=== PATIENT | female | born 1995 | race Caucasian/White ===

== ENCOUNTER 2017-06-19 03:08 | Emergency (ER) | payer SELFPAY ==
[2017-06-19 03:17] VITALS: BP 142/84; PULSE 98; RESP 16; TEMP 98
[2017-06-19] MEDS ORDERED: ONDANSETRON ODT 4 MG TAB PO STA (03:23)
--- NOTE | 2017-06-19 03:25 | ED ---
General Adult HPI - General Chief complaint: Abdominal Pain Stated complaint: VOMITING Time Seen by Provider: 06/19/17 03:18 Source: patient, RN notes reviewed Mode of arrival: ambulatory Limitations: no limitations - History of Present Illness Initial comments: Patient 22-year-old female presenting to the emergency room today with a chief complaint of nausea vomiting. She states she woke up a few hours ago had an episode of vomiting. Feeling better at this time. Does admit that she's had some cramping lower abdomen. States had these symptoms off-and-on over the last week. Patient does admit that she had a test at home that was negative. Patient denies any other complaints symptoms currently. Patient denies any recent fever, chills, shortness of breath, chest pain, back pain, numbness or tingling, dysuria or hematuria, constipation or diarrhea, headaches or visual changes, or any other complaints. - Related Data Previous Rx's Medication Instructions Recorded Ondansetron Odt [Zofran Odt] 4 mg PO Q8HR PRN #10 tab 03/19/16 Sulfamethox-Tmp 800-160Mg [Bactrim 1 each PO Q12HR #20 tab 03/19/16 DS 800-160 mg] Ondansetron [Zofran] 4 mg PO Q8HR PRN #15 tab 06/19/17 Allergies Allergy/AdvReac Type Severity Reaction Status Date / Time No Known Allergies Allergy Verified 03/18/16 22:50 Review of Systems ROS Statement: Those systems with pertinent positive or pertinent negative responses have been documented in the HPI. ROS Other: All systems not noted in ROS Statement are negative. Past Medical History Past Medical History: No Reported History Additional Past Medical History / Comment(s): Blood type: O+ History of Any Multi-Drug Resistant Organisms: None Reported Past Surgical History: No Surgical Hx Reported Additional Past Surgical History / Comment(s): D&C 2016 Past Psychological History: No Psychological Hx Reported Smoking Status: Never smoker Past Alcohol Use History: Occasional Past Drug Use History: Marijuana General Exam - General Exam Comments Initial Comments: General: The patient is awake and alert, in no distress, and does not appear acutely ill. Eye: Pupils are equal, round and reactive to light, extra-ocular movements are intact. No nystagmus. There is normal conjunctiva bilaterally. No signs of icterus. Ears, nose, mouth and throat: There are moist mucous membranes and no oral lesions. Neck: The neck is supple, there is no tenderness or JVD. Cardiovascular: There is a regular rate and rhythm. No murmur, rub or gallop is appreciated. Respiratory: Lungs are clear to auscultation, respirations are non-labored, breath sounds are equal. No wheezes, stridor, rales, or rhonchi. Gastrointestinal: Abdomen soft on palpation. Mild tenderness epigastric. No rebound tenderness. No Guarding. No CVA tenderness. Musculoskeletal: Normal ROM, no tenderness. Strength 5/5. Sensation intact. Pulses equal bilaterally 2+. Neurological: A&O x 3. CN II-XII intact, There are no obvious motor or sensory deficits. Coordination appears grossly intact. Speech is normal. Skin: Skin is warm and dry and no rashes or lesions are noted. Psychiatric: Cooperative, appropriate mood & affect, normal judgment. Limitations: no limitations Course Vital Signs 06/19/17 03:13 Temperature 98.0 F Pulse Rate 98 Respiratory 16 Rate Blood Pressure 142/84 O2 Sat by Pulse 99 Oximetry Medical Decision Making - Medical Decision Making Patient's urinalysis reviewed. Patient doing well at this time no abdominal pain abdomen soft on palpation. Signs symptoms for return were discussed with the patient. Start she'll be treated with nausea medication advised follow-up. - Lab Data Lab Results 06/19/17 06/19/17 Range/Units 03:27 03:27 Urine Color Yellow Urine Appearance Clear (Clear) Urine pH 6.0 (5.0-8.0) Ur Specific [place] 1.016 (1.001-1.035) Urine Protein Trace H (Negative) Urine Glucose (UA) Negative (Negative) Urine Ketones Negative (Negative) Urine Blood Moderate H (Negative) Urine Nitrite Negative (Negative) Urine Bilirubin Negative (Negative) Urine Urobilinogen <2.0 (<2.0) mg/dL Ur Leukocyte Esterase Negative (Negative) Urine RBC 1 (0-5) /hpf Urine WBC 2 (0-5) /hpf Ur Squamous Epith Cells 3 (0-4) /hpf Urine Mucus Few H (None) /hpf Urine HCG, Qual Not Detected (Not Detectd) Disposition Clinical Impression: Nausea & vomiting Disposition: HOME SELF-CARE Condition: Good Instructions: Acute Nausea and Vomiting (ED) Additional Instructions: Please use medication as discussed. Please follow-up with family doctor in the next 2 days of symptoms have not improved. Please return to emergency room if the symptoms increase or worsen or for any other concerns. Prescriptions: Ondansetron [Zofran] 4 mg PO Q8HR PRN #15 tab PRN Reason: Nausea Referrals: None,Stated [Primary Care Provider] - 1-2 days Bambi Dietrich MD [STAFF PHYSICIAN] - 1-2 days Time of Disposition: 03:55
[2017-06-19 03:49] LABS: Appearance,Urine Clear (Clear); Bilirubin,Urine Negative (Negative); Blood,Urine Moderate (Negative); Color,Urine Yellow; Glucose,Urine (UA) Negative (Negative); Ketones,Urine Negative (Negative); Leukocyte Esterase,Urine Negative (Negative); Mucus,Urine Few /hpf; Nitrite,Urine Negative (Negative); Protein,Urine Trace (Negative); RBC,Urine 1 /hpf (0-5); Specific Gravity,Urine 1.016 (1.001-1.035); Squamous Epithelial Cell,Urine 3 /hpf (0-4); Urobilinogen,Urine <2.0 mg/dL (<2.0); WBC,Urine 2 /hpf (0-5)
== END 2017-06-19 04:01 | disposition home or self-care (01) ==
LOC: EC 03:08
DX: R11.2 Nausea with vomiting, unspecified (principal); R10.13 Epigastric pain
CPT/HCPCS: 81001; 81025; 99284

== ENCOUNTER 2018-01-16 13:47 | Emergency (ER) | payer OTHER ==
[2018-01-16 13:53] VITALS: TEMP 97.5
[2018-01-16] MEDS ORDERED: ONDANSETRON 4 MG/2 ML VIAL IVP STA (14:03)
[2018-01-16] MEDS ORDERED: KETOROLAC 30 MG/ML 1 ML VIAL IVP STA (14:03)
[2018-01-16] MEDS ORDERED: SODIUM CHLORIDE 0.9% 1,000 ML IV STA ×2 (14:03)
[2018-01-16] MEDS ORDERED: SODIUM CHLORIDE 0.9% 1,000 ML IV ONE (14:07)
--- NOTE | 2018-01-16 14:07 | ED ---
Nausea/Vomiting/Diarrhea HPI - General Chief complaint: Nausea/Vomiting/Diarrhea Stated complaint: Vomiting Time Seen by Provider: 01/16/18 13:57 Source: patient, RN notes reviewed, old records reviewed Mode of arrival: wheelchair Limitations: no limitations - History of Present Illness Initial comments: This Patient is a 22-year-old female presents emergency department today with chief complaint nausea and vomiting onset this morning. Patient reports she's had lower abdominal pain. She is feeling well yesterday. Said multiple episodes of vomiting over the past few hours. Patient arrives emergency department diaphoretic and pale. Patient states she's had no diarrhea. She states that she may possibly be she's 2 days late from her menstrual cycle. Patient states that she has had no recent fevers or chills. She denies any cough or congestion. - Related Data Previous Rx's Medication Instructions Recorded Ondansetron Odt [Zofran Odt] 4 mg PO Q8HR PRN #10 tab 03/19/16 Sulfamethox-Tmp 800-160Mg [Bactrim 1 each PO Q12HR #20 tab 03/19/16 DS 800-160 mg] Ondansetron [Zofran] 4 mg PO Q8HR PRN #15 tab 06/19/17 Famotidine [Pepcid] 20 mg PO BID #20 tablet 01/16/18 Ondansetron Odt [Zofran Odt] 4 mg PO Q8HR PRN #12 tab 01/16/18 Allergies Allergy/AdvReac Type Severity Reaction Status Date / Time No Known Allergies Allergy Verified 01/16/18 13:53 Review of Systems ROS Statement: Those systems with pertinent positive or pertinent negative responses have been documented in the HPI. ROS Other: All systems not noted in ROS Statement are negative. Past Medical History Past Medical History: No Reported History Additional Past Medical History / Comment(s): Blood type: O+ History of Any Multi-Drug Resistant Organisms: None Reported Past Surgical History: No Surgical Hx Reported Additional Past Surgical History / Comment(s): D&C 2016 Past Psychological History: No Psychological Hx Reported Smoking Status: Never smoker Past Alcohol Use History: Occasional Past Drug Use History: Marijuana General Exam - General Exam Comments Initial Comments: 22-year-old female. Alert and oriented. appears ill, actively vomiting. Pale and diaphoretic. Limitations: no limitations General appearance: alert, in no apparent distress Head exam: Present: atraumatic, normocephalic, normal inspection Eye exam: Present: normal appearance, PERRL, EOMI. Absent: scleral icterus, conjunctival injection, periorbital swelling ENT exam: Present: normal exam, normal oropharynx, mucous membranes moist Neck exam: Present: normal inspection. Absent: tenderness, meningismus, lymphadenopathy Respiratory exam: Present: normal lung sounds bilaterally. Absent: respiratory distress, wheezes, rales, rhonchi, stridor Cardiovascular Exam: Present: regular rate, normal rhythm, normal heart sounds. Absent: systolic murmur, diastolic murmur, rubs, gallop, clicks GI/Abdominal exam: Present: soft, tenderness (Diffuse, epigastric tenderness.), normal bowel sounds. Absent: distended, guarding, rebound, rigid Extremities exam: Present: normal inspection, full ROM, normal capillary refill. Absent: tenderness, pedal edema, joint swelling, calf tenderness Back exam: Present: normal inspection Neurological exam: Present: alert, oriented X3, CN II-XII intact Psychiatric exam: Present: normal affect, normal mood Course Vital Signs 01/16/18 01/16/18 13:51 16:16 Temperature 97.5 F L Pulse Rate 76 90 Respiratory 20 18 Rate Blood Pressure 136/83 124/76 O2 Sat by Pulse 100 99 Oximetry Medical Decision Making - Medical Decision Making 22-year-old female present meds today with 1 day of nausea and vomiting. Patient denies emergency department appearing quite ill diaphoretic and significant vomiting. At this time patient's lab work was reviewed, she did have mild lactic acidosis is 2.1. Patient was given 2 L fluid bolus. Kidney function shows mild dehydration. White blood cell count was normal. On reexam she continued to be nauseated and complaint of abdominal pain. I did complete a CT abdomen and pelvis which at this time was negative for any acute process. Her urinalysis and hCG were both negative. I discussed at this time the Patient will follow-up with primary care provider and we'll put the Patient on Anacin medication for gastritis as well as nausea medication. Patient agrees treatment plan will comply. Return purpose were discussed. - Lab Data Result diagrams: 01/16/18 14:17 01/16/18 14:17 Lab Results 01/16/18 01/16/18 01/16/18 Range/Units 14:17 14:17 14:17 WBC 8.6 (4.0-11.0) k/uL RBC 4.78 (3.80-5.40) m/uL Hgb 12.7 (11.4-16.0) gm/dL Hct 40.1 (34.0-46.0) % MCV 83.9 (80.0-100.0) fL MCH 26.6 (25.0-35.0) pg MCHC 31.7 (31.0-37.0) g/dL RDW 14.1 (11.5-15.5) % Plt Count 211 (150-450) k/uL Neutrophils % 73 % Lymphocytes % 20 % Monocytes % 5 % Eosinophils % 2 % Basophils % 0 % Neutrophils # 6.2 (1.3-7.7) k/uL Lymphocytes # 1.7 (1.0-4.8) k/uL Monocytes # 0.4 (0-1.0) k/uL Eosinophils # 0.1 (0-0.7) k/uL Basophils # 0.0 (0-0.2) k/uL Sodium 139 (137-145) mmol/L Potassium 4.3 (3.5-5.1) mmol/L Chloride 108 H (98-107) mmol/L Carbon Dioxide 19 L (22-30) mmol/L Anion Gap 12 mmol/L BUN 28 H (7-17) mg/dL Creatinine 0.50 L (0.52-1.04) mg/dL Est GFR (CKD-EPI)AfAm >90 (>60 ml/min/1.73 sqM) Est GFR (CKD-EPI)NonAf >90 (>60 ml/min/1.73 sqM) Glucose 116 H (74-99) mg/dL Lactic Ac Sepsis Rflx Plasma Lactic Acid [place] 2.1 H* (0.7-2.0) mmol/L Calcium 10.4 H (8.4-10.2) mg/dL Total Bilirubin 0.6 (0.2-1.3) mg/dL AST 27 (14-36) U/L ALT 22 (9-52) U/L Alkaline Phosphatase 71 (38-126) U/L Total Protein 8.4 H (6.3-8.2) g/dL Albumin 4.8 (3.5-5.0) g/dL Amylase 83 (30-110) U/L Lipase 153 (23-300) U/L Urine Color Urine Appearance (Clear) Urine pH (5.0-8.0) Ur Specific [place] (1.001-1.035) Urine Protein (Negative) Urine Glucose (UA) (Negative) Urine Ketones (Negative) Urine Blood (Negative) Urine Nitrite (Negative) Urine Bilirubin (Negative) Urine Urobilinogen (<2.0) mg/dL Ur Leukocyte Esterase (Negative) Urine HCG, Qual (Not Detectd) 01/16/18 01/16/18 01/16/18 Range/Units 14:54 15:35 15:35 WBC (4.0-11.0) k/uL RBC (3.80-5.40) m/uL Hgb (11.4-16.0) gm/dL Hct (34.0-46.0) % MCV (80.0-100.0) fL MCH (25.0-35.0) pg MCHC (31.0-37.0) g/dL RDW (11.5-15.5) % Plt Count (150-450) k/uL Neutrophils % % Lymphocytes % % Monocytes % % Eosinophils % % Basophils % % Neutrophils # (1.3-7.7) k/uL Lymphocytes # (1.0-4.8) k/uL Monocytes # (0-1.0) k/uL Eosinophils # (0-0.7) k/uL Basophils # (0-0.2) k/uL Sodium (137-145) mmol/L Potassium (3.5-5.1) mmol/L Chloride (98-107) mmol/L Carbon Dioxide (22-30) mmol/L Anion Gap mmol/L BUN (7-17) mg/dL Creatinine (0.52-1.04) mg/dL Est GFR (CKD-EPI)AfAm (>60 ml/min/1.73 sqM) Est GFR (CKD-EPI)NonAf (>60 ml/min/1.73 sqM) Glucose (74-99) mg/dL Lactic Ac Sepsis Rflx Y Plasma Lactic Acid [place] (0.7-2.0) mmol/L Calcium (8.4-10.2) mg/dL Total Bilirubin (0.2-1.3) mg/dL AST (14-36) U/L ALT (9-52) U/L Alkaline Phosphatase (38-126) U/L Total Protein (6.3-8.2) g/dL Albumin (3.5-5.0) g/dL Amylase (30-110) U/L Lipase (23-300) U/L Urine Color Yellow Urine Appearance Clear (Clear) Urine pH 6.5 (5.0-8.0) Ur Specific [place] 1.027 (1.001-1.035) Urine Protein Trace H (Negative) Urine Glucose (UA) Negative (Negative) Urine Ketones Trace H (Negative) Urine Blood Negative (Negative) Urine Nitrite Negative (Negative) Urine Bilirubin Negative (Negative) Urine Urobilinogen 2.0 (<2.0) mg/dL Ur Leukocyte Esterase Negative (Negative) Urine HCG, Qual Not Detected (Not Detectd) - Radiology Data Radiology results: report reviewed Normal CT of abdomen and pelvis. Negative for any acute process. Disposition Clinical Impression: Nausea & vomiting, Gastroenteritis Disposition: HOME SELF-CARE Condition: Good Instructions: Acute Nausea and Vomiting (ED) Additional Instructions: Advised to rest, stay home, drink plenty of fluids. Return to emergency department if any alarming signs or symptoms occur. Prescriptions: Famotidine [Pepcid] 20 mg PO BID #20 tablet Ondansetron Odt [Zofran Odt] 4 mg PO Q8HR PRN #12 tab PRN Reason: Nausea Is patient prescribed a controlled substance at d/c from ED?: No Referrals: None,Stated [Primary Care Provider] - 1-2 days Bambi Dietrich MD [STAFF PHYSICIAN] - 1-2 days Time of Disposition: 17:03
[2018-01-16 14:41] LABS: Basophils % (A) 0 %; Eosinophils # (A) 0.1 k/uL (0-0.7); Eosinophils % (A) 2 %; HCT 40.1 % (34.0-46.0); HGB 12.7 gm/dL (11.4-16.0); Lymphocytes # (A) 1.7 k/uL (1.0-4.8); Lymphocytes % (A) 20 %; MCH 26.6 pg (25.0-35.0); MCHC 31.7 g/dL (31.0-37.0); MCV 83.9 fL (80.0-100.0); Mean Platelet Volume 7.6; Monocytes # (A) 0.4 k/uL (0-1.0); Monocytes % (A) 5 %; Neutrophils # (A) 6.2 k/uL (1.3-7.7); Neutrophils % (A) 73 %; Platelet Count 211 k/uL (150-450); RBC 4.78 m/uL (3.80-5.40); RDW 14.1 % (11.5-15.5); WBC 8.6 k/uL (4.0-11.0)
[2018-01-16 14:50] LABS: ALT 22 U/L (9-52); AST 27 U/L (14-36); Albumin 4.8 g/dL (3.5-5.0); Alkaline Phosphatase 71 U/L (38-126); Amylase 83 U/L (30-110); Anion Gap 12 mmol/L; Blood Urea Nitrogen 28 mg/dL (7-17); Calcium 10.4 mg/dL (8.4-10.2); Carbon Dioxide 19 mmol/L (22-30); Chloride 108 mmol/L (98-107); Glucose 116 mg/dL (74-99); Lipase 153 U/L (23-300); Potassium 4.3 mmol/L (3.5-5.1); Sodium 139 mmol/L (137-145); Total Bilirubin 0.6 mg/dL (0.2-1.3); Total Protein 8.4 g/dL (6.3-8.2)
[2018-01-16 15:47] LABS: Appearance,Urine Clear (Clear); Bilirubin,Urine Negative (Negative); Blood,Urine Negative (Negative); Color,Urine Yellow; Glucose,Urine (UA) Negative (Negative); Ketones,Urine Trace (Negative); Leukocyte Esterase,Urine Negative (Negative); Nitrite,Urine Negative (Negative); PH, Urine 6.5 (5.0-8.0); Protein,Urine Trace (Negative); Specific Gravity,Urine 1.027 (1.001-1.035)
[2018-01-16] MEDS ORDERED: METOCLOPRAMIDE 5 MG/ML 2 ML VIAL IVP STA (16:02)
[2018-01-16] MEDS ORDERED: diphenhydrAMINE 50 MG/ML 1 ML VIAL IVP STA (16:02)
[2018-01-16 16:16] VITALS: BP 124/76; PULSE 90; RESP 18
--- NOTE | 2018-01-16 16:41 | CT ---
EXAMINATION TYPE: CT abdomen pelvis w con DATE OF EXAM: 01/16/2018 COMPARISON: 03/19/2016 HISTORY: Nausea, vomiting and lower abdominal pain. CT DLP: 722.3 mGycm Automated exposure control for dose reduction was used. TECHNIQUE: Helical acquisition of images was performed from the lung bases through the pelvis. CONTRAST: Performed without Oral Contrast and with IV Contrast, patient injected with 100ml mL of Isovue M300. FINDINGS: Lung bases are clear. There is no pleural effusion. Heart size is normal. Liver spleen pancreas appea r normal. Bile ducts are not dilated. Gallbladder appears normal. There is no adrenal mass. Kidneys show satisfactory contrast opacification. There is no hydronephrosi s. There is 5 mm cyst posterior right lobe of the liver. There is no retroperitoneal adenopathy. There is no inguinal hernia. Bladder distends smoothly. Uteru s is anteverted. There is no free fluid in the pelvis. There is no intestinal wall thickening. There are no dilated loops. Lumbar vertebra have normal spacing and alignment. The bony pelvis appears inta ct. There is no mesenteric edema or adenopathy. Appendix is not seen. There is no sign of appendiciti s. IMPRESSION: NEGATIVE CT SCAN ABDOMEN AND PELVIS. NO CHANGE COMPARED TO OLD EXAM.
== END 2018-01-16 17:15 | disposition home or self-care (01) ==
LOC: EC 13:47
DX: K52.9 Noninfective gastroenteritis and colitis, unspecified (principal); E87.2 Acidosis; E86.0 Dehydration
CPT/HCPCS: 36415; 80053; 82150; 83605; 83690; 85025; 81003; 81025; 87040; 74177; 99284; 96374; 96375 ×3; 96361 ×2; J1200; J2765; J2405; J1885; Q9967; 87077; 87186

== ENCOUNTER 2019-01-23 01:12 | Emergency (ER) | payer OTHER ==
[2019-01-23] MEDS ORDERED: IBUPROFEN 400 MG TAB PO STA (01:48)
[2019-01-23] MEDS ORDERED: SULFAMETHOX-TMP 800-160MG 1 EACH TAB PO STA (01:49)
[2019-01-23] MEDS ORDERED: CEPHALEXIN 500 MG CAP PO STA (01:49)
[2019-01-23] MEDS ORDERED: ACET/COD 300 MG/30 MG STARTER PACK 6 TAB BTL PO STA (01:49)
--- NOTE | 2019-01-23 01:53 | ED ---
Skin/Abscess/FB HPI - General Chief complaint: Skin/Abscess/Foreign Body Stated complaint: Lump under breast Time Seen by Provider: 01/23/19 01:22 EST Source: patient Mode of arrival: ambulatory Limitations: no limitations - History of Present Illness Initial comments: This patient is a 23-year-old woman who presents to have evaluation of a lump that is developing in the inferior aspect of the right breast. Patient states that she initially noted this 4 days ago. Since that time she states it is becoming little bit larger and is now mildly painful. The area is also tender. She has not noted fever or chills. She has not noted warmth of the area. She states it may be looking a little bit red to her. There has been no nipple drainage. She has not noticed any axillary swelling. No other systemic symptoms. MD complaint: lesion Onset/Timin -: days(s) Tetanus Up to Date: yes Location: chest Severity: moderate Quality: aching Consistency: constant Improves with: none Worsens with: palpation Context: none Associated symptoms: denies other symptoms - Related Data Home Medications Medication Instructions Recorded Confirmed No Known Home Medications 01/23/19 01/23/19 Allergies Allergy/AdvReac Type Severity Reaction Status Date / Time No Known Allergies Allergy Verified 01/23/19 01:26 EST Review of Systems ROS Statement: Those systems with pertinent positive or pertinent negative responses have been documented in the HPI. ROS Other: All systems not noted in ROS Statement are negative. Constitutional: Denies: fever, chills Respiratory: Denies: cough, dyspnea Cardiovascular: Denies: chest pain, palpitations Gastrointestinal: Denies: abdominal pain, nausea, vomiting Skin: Denies: rash Past Medical History Past Medical History: No Reported History Additional Past Medical History / Comment(s): Blood type: O+ History of Any Multi-Drug Resistant Organisms: None Reported Past Surgical History: No Surgical Hx Reported Additional Past Surgical History / Comment(s): D&C 2016 Past Psychological History: No Psychological Hx Reported Smoking Status: Never smoker Past Alcohol Use History: None Reported Past Drug Use History: None Reported, Marijuana General Exam Limitations: no limitations General appearance: alert, in no apparent distress Respiratory exam: Present: normal lung sounds bilaterally. Absent: respiratory distress, wheezes, rales, rhonchi, stridor Cardiovascular Exam: Present: regular rate (Heart rate at my exam is 92), normal rhythm, normal heart sounds. Absent: systolic murmur, diastolic murmur, rubs, gallop Course Vital Signs 01/23/19 01:24 EST Temperature 98.6 F Pulse Rate 16 L Respiratory 123 H Rate Blood Pressure 123/82 O2 Sat by Pulse 100 Oximetry Medical Decision Making - Medical Decision Making Breast examination, with RN Crow present as tissue coordinator, reveals that there is an approximately 2 x 3 area of induration, with some overlying erythema, no real warmth. There is mild tenderness. No definite fluctuance. This is located at the 6 o'clock position. Discussed with the patient starting her on antibiotics, warm compresses, and other local care. Discussed appropriate follow-up and further care. Disposition Clinical Impression: Mastitis Disposition: HOME SELF-CARE Condition: Good Instructions (If sedation given, give patient instructions): Mastitis (ED) Is patient prescribed a controlled substance at d/c from ED?: No Referrals: None,Stated [Primary Care Provider] - 1-2 days Ella Charles MD [REFERRING] - 1-2 days Sofie Gonzales MD [STAFF PHYSICIAN] - 1-2 days
[2019-01-23 02:25] VITALS: BP 127/68; PULSE 68; RESP 16; TEMP 97.6
== END 2019-01-23 02:24 | disposition home or self-care (01) ==
LOC: EC 01:12
DX: N61.0 Mastitis without abscess (principal)
CPT/HCPCS: 99283

== ENCOUNTER 2019-08-24 16:26 | Outpatient (CLI) | payer OTHER ==
[2019-08-24 17:34] VITALS: BP 140/84; PULSE 103; RESP 18; TEMP 98.6
--- NOTE | 2019-09-01 07:38 | P.MSEPDOC ---
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 No visible bleeding in triage today - with spec or vaginal exam. Vital Signs - Temperature Temperature: 98.6 F Temperature Source: Oral - Pulse Right Sitting Brachial Pulse Rate: 103 Pulse Assessment Method: Automatic Cuff - Respirations Respiratory Rate: 18 Oxygen Delivery Method: Room Air O2 Sat by Pulse Oximetry: 98 - Blood Pressure Right Arm Sitting Blood Pressure: 140/84 Blood Pressure Mean: 102 Blood Pressure Source: Automatic Cuff Medical Screen Scoring (Pre) - Cervical Exam Dilation: 1-3 cm = 1 - Uterine Contractions Frequency: > 5 minutes apart = 1 Duration: > 40 seconds = 2 Intensity: N/A - Maternal Vital Signs Maternal Temperature: N/A Maternal Blood Pressure: N/A Signs of Preeclampsia: N/A Maternal Respirations: N/A - Maternal Trauma Maternal Trauma: N/A - Assessment - Baby A Baseline FHR: 135 Heart Rate - NICHD Category: Category I (Normal) = 0 NST: Reactive Position: N/A Station: N/A - Total Score - Baby A Total Score - Baby A: 4 - Total Score - Baby B Total Score - Baby B: 4 - Total Score - Baby C Total Score - Baby C: 4 - Level of Risk - Baby A Level of Risk - Baby A: Low (0-5) - Level of Risk - Baby B Level of Risk - Baby B: Low (0-5) - Level of Risk - Baby C Level of Risk - Baby C: Low (0-5) - Pain Assessment Pain Location and Character: Abdomen Pain Scale Used: Numeric (1 - 10) Pain Intensity: 5 Pain Management Goal: 3 Pain Description: Tightness Pain Radiation Location: none Pain Frequency: Intermittent Pain Duration: 1 Pain Duration Units: Hours Pain Behavior: None Exhibited Effects of Pain: none Pain Aggravating Factors: Activity, ADL's Physician Notification (Pre) - Physician Notified Physician Notified Date: 08/24/19 Physician Notified Time: 17:20 New Order Received: Yes - Notification Comment Comment: DC home after reactive NST, oral hydration, off work tonight, call for AM appt. Disposition - Disposition OB Disposition: Physician follow up in office, Discharge to home Discharge Date: 08/24/19 Discharge Time: 17:33 I agree with the RN Medical Screening Exam: Yes Risk & Benefit of care provided described in d/c instruction: Yes Diagnosis: FALSE LABOR BEFORE 37 COMPLETED WEEKS OF GEST, THIRD TRI
== END 2019-08-24 17:36 | disposition home or self-care (01) ==
LOC: FBPOP 16:26
PROVIDERS: ATTEND Obstetrics & Gynecology
DX: O47.03 False labor before 37 completed weeks of gestation, third trimester (principal); Z3A.37 37 weeks gestation of pregnancy
CPT/HCPCS: 59025; G0463; 99215

== ENCOUNTER 2019-09-11 06:22 | Inpatient (IN) | payer OTHER ==
[2019-09-11] MEDS ORDERED: TERBUTALINE 1 MG/ML VIAL SQ PRN (06:46)
[2019-09-11] MEDS ORDERED: METHYLERGONOVINE 0.2 MG/ML 1 ML AMP IM PRN (06:46)
[2019-09-11] MEDS ORDERED: OXYTOCIN 10 UNIT/ML 1 ML VIAL IM PRN (06:46)
[2019-09-11] MEDS ORDERED: CARBOPROST TROMETHAMINE 250 MCG/ML 1 ML AMP IM PRN (06:46)
[2019-09-11] MEDS ORDERED: LIDOCAINE 0.5% (PF) 5 MG/ML (50 ML SDV) SQ PRN (06:46)
[2019-09-11 06:54] LABS: Basophils % (A) 0 %; Eosinophils % (A) 0 %; HCT 36.4 % (34.0-46.0); HGB 12.6 gm/dL (11.4-16.0); Lymphocytes # (A) 0.9 k/uL (1.0-4.8); Lymphocytes % (A) 9 %; MCH 30.1 pg (25.0-35.0); MCHC 34.7 g/dL (31.0-37.0); MCV 86.9 fL (80.0-100.0); Mean Platelet Volume 10.1; Monocytes # (A) 0.3 k/uL (0-1.0); Monocytes % (A) 3 %; Neutrophils # (A) 9.1 k/uL (1.3-7.7); Neutrophils % (A) 86 %; Platelet Count 174 k/uL (150-450); RBC 4.19 m/uL (3.80-5.40); RDW 12.5 % (11.5-15.5); WBC 10.6 k/uL (3.8-10.6)
[2019-09-11] MEDS ORDERED: ZOLPIDEM 5 MG TAB PO PRN (07:17)
[2019-09-11] MEDS ORDERED: HYDROCORTISONE 2.5% RECTAL CREAM 30 GM TUBE RECTAL PRN (07:17)
[2019-09-11] MEDS ORDERED: HYDROcodone/APAP 5-325MG 1 EACH TAB PO PRN (07:17)
[2019-09-11] MEDS ORDERED: BENZOCAINE/MENTHOL SPRAY 1 GM/SPRAY AEROSOL TOPICAL PRN (07:17)
[2019-09-11] MEDS ORDERED: ACETAMINOPHEN TAB 325 MG TAB PO PRN (07:17)
[2019-09-11] MEDS ORDERED: SIMETHICONE 80 MG CHEWABLE PO PRN (07:17)
[2019-09-11] MEDS ORDERED: HYDROcodone/APAP 7.5-325MG 1 EACH TAB PO PRN (07:17)
[2019-09-11] MEDS ORDERED: LANOLIN CREAM 5 GM TUBE TOPICAL PRN (07:17)
[2019-09-11] MEDS ORDERED: diphenhydrAMINE 25 MG CAP PO PRN (07:17)
[2019-09-11] MEDS ORDERED: WITCH HAZEL 1 EACH MED..PAD TOPICAL PRN (07:17)
[2019-09-11] MEDS ORDERED: diphenhydrAMINE 50 MG/ML 1 ML VIAL IVP PRN ×2 (07:17)
[2019-09-11] MEDS ORDERED: diphenhydrAMINE 50 MG CAP PO PRN (07:17)
--- NOTE | 2019-09-11 07:27 | P.HPOB ---
History of Present Illness H&P Date: 09/11/19 Chief Complaint: 37-6/7 weeks, active labor The patient is a 24-year-old 2 para 0010 admitted at 37-6/7 weeks as established by last menstrual period and confirmed by second trimester ultrasound per she is admitted in active labor at 9+ centimeters dilated with all signs reassuring. Her has been essentially uncomplicated though she the fetus did have a suspected VSD for which she was sent for echo which failed to demonstrate any abnormalities. She also is known to be rubella nonimmune. Group B strep status is negative. She did present with spontaneous rupture of membranes with reportedly clear fluid. Obstetrical history: 2 para 0010 with 1 previous early miscarriage not requiring D&C. Current statistics are listed in history of present illness. EDC of 09/26/2019 was established by last menstrual period and confirmed by second trimester ultrasound. Laboratory workup demonstrates a blood type of O+ with a negative antibody screen. Rubella status is nonimmune. Remainder of the laboratory workup was within normal limits. Early Glucola as well as second trimester Glucola were within normal limits and group B strep status is negative. Gynecologic history: Unremarkable with no history of any infections to include STDs. Review of Systems Review of systems is confined to history of present illness. Past Medical History Past Medical History: No Reported History Additional Past Medical History / Comment(s): Blood type: O+ History of Any Multi-Drug Resistant Organisms: None Reported Past Surgical History: No Surgical Hx Reported Additional Past Surgical History / Comment(s): D&C 2015 Smoking Status: Never smoker Medications and Allergies Home Medications Medication Instructions Recorded Confirmed Type Doxylamine Succinate [Unisom] 25 mg PO DIRECTED 08/24/19 09/11/19 History Ferrous Sulfate [Iron] 325 mg PO DAILY 08/24/19 09/11/19 History Pnv No.95/Ferrous Fum/Folic AC 1 each PO DAILY 08/24/19 09/11/19 History [ Multivitamin Tablet] Allergies Allergy/AdvReac Type Severity Reaction Status Date / Time No Known Allergies Allergy Verified 09/11/19 06:45 Exam Vital Signs Temp Pulse Resp BP Pulse Ox 09/11/19 07:19 97.8 F 70 18 143/85 09/11/19 07:06 97.4 F L 102 H 18 128/68 95 Intake and Output 09/10/19 09/11/19 09/11/19 22:59 06:59 14:59 Other: Weight 90.718 kg In general, this is a well-developed, well-nourished white female in moderate to significant discomfort as she is in active labor and completely dilated. Her heart has a regular rhythm and rate without murmur. Her lungs are clear to auscultation bilaterally. Her abdomen is nondistended, gravid, has normal active bowel sounds, soft, nontender, without any palpable masses aside from uterine fundus. Her extremities are without any cyanosis, clubbing, or significant edema and are nontender to palpation bilaterally. Digital cervical examination da Ruchi discharged to be completely dilated with the vertex in presentation at +2 station. Results Result Diagrams: 09/11/19 06:33 Abnormal Lab Results - Last 24 Hours (Table) 09/11/19 Range/Units 06:33 Neutrophils # 9.1 H (1.3-7.7) k/uL Lymphocytes # 0.9 L (1.0-4.8) k/uL Assessment and Plan (1) Active labor at term Current Visit: Yes Status: Acute Code(s): [id number] - SNOMED Code(s): 29923270 Plan: The patient has been admitted for active management of labor. She'll have close maternal and surveillance and expectant management will be practiced.
[2019-09-11] MEDS ORDERED: OXYTOCIN 20 UNITS/1000 ML NS 1,000 ML IV SCH (07:30)
--- NOTE | 2019-09-11 07:30 | P.PROBDLV ---
Vaginal Delivery Note - . Vaginal Delivery Note: The patient is a 24-year-old 2 para 0010 admitted at 37-6/7 weeks by good dating parameters breech she is admitted in active labor with spontaneous rupture of membranes and all signs reassuring. Her has been uncomplicated though she is rubella nonimmune and the fetus had a suspected ventriculoseptal defect which was not demonstrated with echo at [place]. On labor and delivery, I presented very quickly as the patient was 9+ centimeters upon presentation. She then pushed over the course of approximately 4-5 contractions to a normal spontaneous vaginal delivery of a viable 6 lbs. 10 oz. baby girl with Apgars of 7 at 1 minute and 8 at 5 minutes delivered in the right occiput anterior position. There was then noted to be moderate meconium- stained fluid behind the fetus. The nose and mouth were thoroughly suctioned on the perineum. Remainder of the infant was then delivered where the nose and mouth were again thoroughly suctioned. The infant was immediately vigorous. The placenta was delivered spontaneously, intact, and grossly normal with a grossly normal three-vessel cord inserted approximate 3-4 cm from the margin of the placental disc. There were no perineal lacerations of the she did have mild bilateral periurethral abrasions which were not stitched. All sponge, instrument, and needle counts were correct. Estimated blood loss for the case was approximately 250 mL. There were no complications. Both mother and are resting comfortably in recovery of the infant was taken the special care nursery for observation secondary to tachypnea and of a slightly low oxygen saturation.
[2019-09-11] MEDS: IBUPROFEN 600 MG TAB PO PRN ×2 (08:20→20:00)
[2019-09-11] MEDS ORDERED: MEASLES-MUMPS-RUBELLA VACC/PF 12,500 UNIT/0.5 ML VIAL SQ ONE (14:30)
[2019-09-11] MEDS: SENNOSIDES-DOCUSATE SODIUM 1 EACH TAB PO SCH ×2 (19:48→20:00)
[2019-09-11] MEDS: LACTATED RINGERS 1,000 ML IV SCH (20:16)
[2019-09-12 06:13] LABS: Basophils % (A) 0 %; Eosinophils % (A) 0 %; HCT 32.5 % (34.0-46.0); HGB 11.1 gm/dL (11.4-16.0); Lymphocytes # (A) 1.5 k/uL (1.0-4.8); Lymphocytes % (A) 20 %; MCH 29.8 pg (25.0-35.0); MCV 87.6 fL (80.0-100.0); Mean Platelet Volume 9.2; Monocytes # (A) 0.5 k/uL (0-1.0); Monocytes % (A) 6 %; Neutrophils # (A) 5.5 k/uL (1.3-7.7); Neutrophils % (A) 72 %; Platelet Count 171 k/uL (150-450); RBC 3.71 m/uL (3.80-5.40); RDW 12.5 % (11.5-15.5); WBC 7.7 k/uL (3.8-10.6)
[2019-09-12 08:24] VITALS: BP 141/80; PULSE 70; RESP 16; TEMP 98.7
[2019-09-12] MEDS: SENNOSIDES-DOCUSATE SODIUM 1 EACH TAB PO SCH (08:25)
--- NOTE | 2019-09-12 10:06 | P.DS ---
Providers Date of admission: 09/11/19 06:33 Expected date of discharge: 09/12/19 Attending physician: Patricia English Primary care physician: Stated None Hospital Course: This is a 24-year-old white female 2 para 0010 EDC 09/26/2019 37-6/7 weeks' gestation. Patient presented in active spontaneous labor from home. Spontaneous amniorrhexis revealed light meconium-stained fluid. was remarkable for rubella status nonimmune, blood type O positive, group B strep cultures negative. Please see dictated history and physical for details. Patient went onto very swiftly deliver a liveborn female with scores of 7 and 8 at one and 5 minutes respectively. There were no lacerations encountered. Estimated blood loss 250 mL's. Infant weight 3015 g or 6 lbs. 10 oz. Please see dictated delivery note for details. This morning the patient is doing well. She is voiding, ambulating, passing flatus without difficulty. Vital signs are stable and she is afebrile. Fundus is firm and in the midline, symmetric and 18 week size. Extremities are negative for edema. Chest is clear in all moon. is doing well. Patient is judged to be in very good condition for discharge home. She will follow-up in the office with me in 6 weeks. I have reminded her no intercourse, tampons or douching. She will use [id number] Advil or Aleve, or Motrin as needed for pain. She will call with any fevers shakes or chills, foul smelling or copious lochia, with the passage of large blood clots, with any pain not alleviated by [id number] products, or indeed with any concerns. Contraceptive options have briefly been reviewed, and we will discuss this further in the office. Patient Condition at Discharge: Good Plan - Discharge Summary Discharge Rx Participant: No New Discharge Prescriptions: No Action Pnv No.95/Ferrous Fum/Folic AC [ Multivitamin Tablet] 1 each PO DAILY Doxylamine Succinate [Unisom] 25 mg PO DIRECTED Ferrous Sulfate [Iron] 325 mg PO DAILY Discharge Medication List Doxylamine Succinate [Unisom] 25 mg PO DIRECTED 08/24/19 [History] Ferrous Sulfate [Iron] 325 mg PO DAILY 08/24/19 [History] Pnv No.95/Ferrous Fum/Folic AC [ Multivitamin Tablet] 1 each PO DAILY 08/24/19 [History] Follow up Appointment(s)/Referral(s): Patricia English MD [STAFF PHYSICIAN] - 6 Weeks
== END 2019-09-12 10:45 | disposition home or self-care (01) | DRG 807 ==
LOC: FBPOP 06:22 → 4FBP 06:33
PROVIDERS: ADMIT Obstetrics & Gynecology; ATTEND Obstetrics & Gynecology
PROC: 10E0XZZ Delivery of Products of Conception, External Approach (ICD-10-PCS; principal; 2019-09-11)
DX: O77.0 Labor and delivery complicated by meconium in amniotic fluid (principal); Z37.0 Single live birth; Z3A.37 37 weeks gestation of pregnancy; Z79.899 Other long term (current) drug therapy
CPT/HCPCS: 85025; 86850; 86900; 86901; 90707

== ENCOUNTER 2021-12-23 14:09 | Emergency (ER) | payer OTHER ==
[2021-12-23 14:22] VITALS: TEMP 98.1
[2021-12-23] MEDS ORDERED: SODIUM CHLORIDE 0.9% 1,000 ML IV STA (14:37)
[2021-12-23] MEDS ORDERED: ONDANSETRON 4 MG/2 ML VIAL IVP STA (14:37)
[2021-12-23] MEDS ORDERED: PANTOPRAZOLE 40 MG/10 ML VIAL IVP STA (14:37)
--- NOTE | 2021-12-23 14:42 | ED ---
Abdominal Pain HPI - General Chief Complaint: Abdominal Pain Stated Complaint: Puking blood Time Seen by Provider: 12/23/21 14:29 Source: patient, RN notes reviewed, old records reviewed Mode of arrival: ambulatory Limitations: no limitations - History of Present Illness Initial Comments: 26-year-old female presents to the emergency room with vomiting blood today. Patient states that she is very anxious and just lost her brother. States she has been sick with cough and congestion for the past week however today she was vomiting and it was bright red in color which concerned her. She does have a history of iron deficiency anemia. She denies any alcohol, drug use or cigarette smoking. States that there is a possibility of . Denies any dysuria, vaginal discharge or vaginal bleeding. MD Complaint: abdominal pain -: days(s) (1) Location: LLQ Radiation: none Severity scale (1-10): 6 Consistency: constant Improves With: nothing Associated Symptoms: nausea, vomiting, hematemesis, other (cough, congestion) - Related Data Home Medications Medication Instructions Recorded Confirmed No Known Home Medications 12/23/21 12/23/21 Allergies Allergy/AdvReac Type Severity Reaction Status Date / Time No Known Allergies Allergy Verified 12/23/21 16:19 Review of Systems ROS Statement: Those systems with pertinent positive or pertinent negative responses have been documented in the HPI. ROS Other: All systems not noted in ROS Statement are negative. Past Medical History Past Medical History: No Reported History Additional Past Medical History / Comment(s): Blood type: O+ History of Any Multi-Drug Resistant Organisms: None Reported Past Surgical History: No Surgical Hx Reported Additional Past Surgical History / Comment(s): D&C 2016 Past Anesthesia/Blood Transfusion Reactions: No Reported Reaction Past Psychological History: No Psychological Hx Reported Past Alcohol Use History: None Reported Past Drug Use History: None Reported, Marijuana - Past Family History Mother Family Medical History: No Reported History General Exam Limitations: no limitations General appearance: alert, in no apparent distress Head exam: Present: atraumatic Eye exam: Present: normal appearance. Absent: scleral icterus, conjunctival injection, periorbital swelling, periorbital tenderness ENT exam: Present: normal oropharynx, mucous membranes moist Neck exam: Present: normal inspection, full ROM. Absent: tenderness, meningismus, lymphadenopathy, thyromegaly Respiratory exam: Present: normal lung sounds bilaterally. Absent: respiratory distress, wheezes, rales, rhonchi, stridor, chest wall tenderness, accessory mus deanna use, decreased breath sounds Cardiovascular Exam: Present: regular rate GI/Abdominal exam: Present: soft, tenderness (Left lower quadrant). Absent: distended, guarding, rebound, rigid Extremities exam: Present: normal capillary refill. Absent: full ROM, tenderness, pedal edema Back exam: Present: normal inspection, full ROM. Absent: tenderness, CVA tenderness (R), CVA tenderness (L), rash noted Neurological exam: Present: alert, oriented X3 Psychiatric exam: Present: normal affect, normal mood Skin exam: Present: warm, dry, normal color, other (Scattered bruising bilateral lower extremities and left upper arm). Absent: cyanosis, diaphoretic, petechiae, pallor Course Vital Signs 12/23/21 12/23/21 14:17 17:13 Temperature 98.1 F Pulse Rate 99 82 Respiratory 20 18 Rate Blood Pressure 151/84 108/73 O2 Sat by Pulse 100 100 Oximetry Medical Decision Making - Medical Decision Making Patient presents with vomiting of blood today. Denies any abdominal pain on exam. She does have scattered bruising to bilateral lower extremities and arms and states she has iron deficiency anemia and bruises easily. She denies any other abnormal bleeding. Hemoglobin and hematocrit stable, platelet count within normal limits at 215. Electrolytes are unremarkable. Urinalysis shows no evidence of , no evidence of infection. Abdomen soft and nontender, no RLQ pain. Patient was given IV fluids, Protonix, Toradol and Zofran in the emergency room. She states that she is feeling much better. No vomiting in the emergency room. Vital signs are stable. She is afebrile. Patient's bleeding may have been related to persistent retching which has now resolved. She was directed to follow up with her primary care doctor and return to the ER with any new or concerning symptoms. She is agreeable to this plan of care. Case was discussed with Dr. Son - Lab Data Result diagrams: 12/23/21 14:57 12/23/21 14:57 Lab Results 12/23/21 12/23/21 12/23/21 Range/Units 14:57 14:57 14:57 WBC 6.2 (3.8-10.6) k/uL RBC 4.69 (3.80-5.40) m/uL Hgb 12.0 (11.4-16.0) gm/dL Hct 38.3 (34.0-46.0) % MCV 81.6 (80.0-100.0) fL MCH 25.7 (25.0-35.0) pg MCHC 31.5 (31.0-37.0) g/dL RDW 14.3 (11.5-15.5) % Plt Count 215 (150-450) k/uL MPV 7.9 Neutrophils % 72 % Lymphocytes % 21 % Monocytes % 5 % Eosinophils % 1 % Basophils % 0 % Neutrophils # 4.5 (1.3-7.7) k/uL Lymphocytes # 1.3 (1.0-4.8) k/uL Monocytes # 0.3 (0-1.0) k/uL Eosinophils # 0.0 (0-0.7) k/uL Basophils # 0.0 (0-0.2) k/uL Hypochromasia Slight PT 9.9 (9.0-12.0) sec INR 0.9 (<1.2) APTT 23.3 (22.0-30.0) sec Sodium 140 (137-145) mmol/L Potassium 3.6 (3.5-5.1) mmol/L Chloride 98 (98-107) mmol/L Carbon Dioxide 29 (22-30) mmol/L Anion Gap 13 mmol/L BUN 20 H (7-17) mg/dL Creatinine 0.57 (0.52-1.04) mg/dL Est GFR (CKD-EPI)AfAm >90 (>60 ml/min/1.73 sqM) Est GFR (CKD-EPI)NonAf >90 (>60 ml/min/1.73 sqM) Glucose 96 (74-99) mg/dL Calcium 9.6 (8.4-10.2) mg/dL Total Bilirubin 0.3 (0.2-1.3) mg/dL AST 28 (14-36) U/L ALT 19 (4-34) U/L Alkaline Phosphatase 90 (38-126) U/L Total Protein 7.6 (6.3-8.2) g/dL Albumin 4.7 (3.5-5.0) g/dL Amylase 93 (30-110) U/L Lipase 260 (23-300) U/L HCG, Quant <2.4 mIU/mL Urine Color Urine Appearance (Clear) Urine pH (5.0-8.0) Ur Specific [place] (1.001-1.035) Urine Protein (Negative) Urine Glucose (UA) (Negative) Urine Ketones (Negative) Urine Blood (Negative) Urine Nitrite (Negative) Urine Bilirubin (Negative) Urine Urobilinogen (<2.0) mg/dL Ur Leukocyte Esterase (Negative) Urine RBC (0-5) /hpf Urine WBC (0-5) /hpf Ur Squamous Epith Cells (0-4) /hpf Urine Mucus (None) /hpf Urine HCG, Qual (Not Detectd) 12/23/21 12/23/21 Range/Units 14:57 14:57 WBC (3.8-10.6) k/uL RBC (3.80-5.40) m/uL Hgb (11.4-16.0) gm/dL Hct (34.0-46.0) % MCV (80.0-100.0) fL MCH (25.0-35.0) pg MCHC (31.0-37.0) g/dL RDW (11.5-15.5) % Plt Count (150-450) k/uL MPV Neutrophils % % Lymphocytes % % Monocytes % % Eosinophils % % Basophils % % Neutrophils # (1.3-7.7) k/uL Lymphocytes # (1.0-4.8) k/uL Monocytes # (0-1.0) k/uL Eosinophils # (0-0.7) k/uL Basophils # (0-0.2) k/uL Hypochromasia PT (9.0-12.0) sec INR (<1.2) APTT (22.0-30.0) sec Sodium (137-145) mmol/L Potassium (3.5-5.1) mmol/L Chloride (98-107) mmol/L Carbon Dioxide (22-30) mmol/L Anion Gap mmol/L BUN (7-17) mg/dL Creatinine (0.52-1.04) mg/dL Est GFR (CKD-EPI)AfAm (>60 ml/min/1.73 sqM) Est GFR (CKD-EPI)NonAf (>60 ml/min/1.73 sqM) Glucose (74-99) mg/dL Calcium (8.4-10.2) mg/dL Total Bilirubin (0.2-1.3) mg/dL AST (14-36) U/L ALT (4-34) U/L Alkaline Phosphatase (38-126) U/L Total Protein (6.3-8.2) g/dL Albumin (3.5-5.0) g/dL Amylase (30-110) U/L Lipase (23-300) U/L HCG, Quant mIU/mL Urine Color Light Yellow Urine Appearance Clear (Clear) Urine pH 8.5 H (5.0-8.0) Ur Specific [place] 1.020 (1.001-1.035) Urine Protein Trace H (Negative) Urine Glucose (UA) Negative (Negative) Urine Ketones Negative (Negative) Urine Blood Negative (Negative) Urine Nitrite Negative (Negative) Urine Bilirubin Negative (Negative) Urine Urobilinogen <2.0 (<2.0) mg/dL Ur Leukocyte Esterase Small H (Negative) Urine RBC 1 (0-5) /hpf Urine WBC 4 (0-5) /hpf Ur Squamous Epith Cells 6 H (0-4) /hpf Urine Mucus Rare H (None) /hpf Urine HCG, Qual Not Detected (Not Detectd) Disposition Clinical Impression: Nausea & vomiting Disposition: HOME SELF-CARE Condition: Good Instructions (If sedation given, give patient instructions): Acute Nausea and Vomiting (ED) Additional Instructions: Increase your fluid intake. Eat a bland diet for the next 24 hours; bananas, rice, applesauce and toast. Avoid alcohol or spicy foods for the next 72 hours. Follow-up with your primary care doctor this week. Return to the emergency room with any new or concerning symptoms including persistent nausea vomiting, right lower quadrant pain, or fevers. Is patient prescribed a controlled substance at d/c from ED?: No Referrals: None,Stated [Primary Care Provider] - 1-2 days Time of Disposition: 16:59
[2021-12-23 15:13] LABS: Appearance,Urine Clear (Clear); Basophils % (A) 0 %; Bilirubin,Urine Negative (Negative); Blood,Urine Negative (Negative); Color,Urine Light Yellow; Eosinophils % (A) 1 %; Glucose,Urine (UA) Negative (Negative); HCT 38.3 % (34.0-46.0); Hypochromasia Slight; Ketones,Urine Negative (Negative); Leukocyte Esterase,Urine Small (Negative); Lymphocytes # (A) 1.3 k/uL (1.0-4.8); Lymphocytes % (A) 21 %; MCH 25.7 pg (25.0-35.0); MCHC 31.5 g/dL (31.0-37.0); MCV 81.6 fL (80.0-100.0); Mean Platelet Volume 7.9; Monocytes # (A) 0.3 k/uL (0-1.0); Monocytes % (A) 5 %; Mucus,Urine Rare /hpf; Neutrophils # (A) 4.5 k/uL (1.3-7.7); Neutrophils % (A) 72 %; Nitrite,Urine Negative (Negative); PH, Urine 8.5 (5.0-8.0); Platelet Count 215 k/uL (150-450); Protein,Urine Trace (Negative); RBC 4.69 m/uL (3.80-5.40); RBC,Urine 1 /hpf (0-5); RDW 14.3 % (11.5-15.5); Squamous Epithelial Cell,Urine 6 /hpf (0-4); Urobilinogen,Urine <2.0 mg/dL (<2.0); WBC 6.2 k/uL (3.8-10.6); WBC,Urine 4 /hpf (0-5)
[2021-12-23 15:20] LABS: ALT 19 U/L (4-34); AST 28 U/L (14-36); African American GFR (CKD) >90 (>60 ml/min/1.73 sqM); Albumin 4.7 g/dL (3.5-5.0); Alkaline Phosphatase 90 U/L (38-126); Amylase 93 U/L (30-110); Anion Gap 13 mmol/L; Blood Urea Nitrogen 20 mg/dL (7-17); Calcium 9.6 mg/dL (8.4-10.2); Carbon Dioxide 29 mmol/L (22-30); Chloride 98 mmol/L (98-107); Glucose 96 mg/dL (74-99); Lipase 260 U/L (23-300); Non-African American GFR(CKD) >90 (>60 ml/min/1.73 sqM); Potassium 3.6 mmol/L (3.5-5.1); Sodium 140 mmol/L (137-145); Total Bilirubin 0.3 mg/dL (0.2-1.3); Total Protein 7.6 g/dL (6.3-8.2)
[2021-12-23] MEDS ORDERED: KETOROLAC 15 MG/ML 1 ML VIAL IVP STA (15:31)
[2021-12-23 15:55] LABS: HCG,Quantitative Serum <2.4 mIU/mL
[2021-12-23 16:30] LABS: INR 0.9 (<1.2); Partial Thromboplastin Time 23.3 sec (22.0-30.0); Prothrombin Time 9.9 sec (9.0-12.0)
[2021-12-23] MEDS ORDERED: ONDANSETRON 4 MG ODT STARTER PACK 2 TAB BTL PO STA (16:57)
[2021-12-23 17:14] VITALS: BP 108/73; PULSE 82; RESP 18
== END 2021-12-23 17:15 | disposition home or self-care (01) ==
LOC: EC 14:09
DX: R11.2 Nausea with vomiting, unspecified (principal)
CPT/HCPCS: 99284 ×2; 96361 ×2; 96374 ×2; 96375 ×2; 36415; 80053; 82150; 83690; 85025; 85610; 85730; 81001; 81025; 84702; J2405; J1885; S0119; C9113

== ENCOUNTER 2023-04-02 20:56 | Emergency (ER) | payer OTHER ==
--- NOTE | 2023-04-02 21:10 | ED ---
General Adult HPI - General Stated complaint: Vomiting blood Time Seen by Provider: 04/02/23 21:10 - History of Present Illness Initial comments: 27-year-old female presented to the ED with chief complaint of nausea and vomiting. States since this morning onset of nausea and vomiting. States also has some abdominal cramping. Denies vaginal bleeding. Denies Fever or chills. No chest pain or shortness of breath. No other complaints. - Related Data Previous Rx's Medication Instructions Recorded Ondansetron Odt [Zofran Odt] 4 mg PO Q8HR PRN #10 tab 04/03/23 Allergies Allergy/AdvReac Type Severity Reaction Status Date / Time No Known Allergies Allergy Verified 04/02/23 21:11 Review of Systems ROS Statement: Those systems with pertinent positive or pertinent negative responses have been documented in the HPI. ROS Other: All systems not noted in ROS Statement are negative. Past Medical History Past Medical History: No Reported History Additional Past Medical History / Comment(s): Blood type: O+ History of Any Multi-Drug Resistant Organisms: None Reported Past Surgical History: No Surgical Hx Reported Additional Past Surgical History / Comment(s): D&C 2016 Past Anesthesia/Blood Transfusion Reactions: No Reported Reaction Past Psychological History: No Psychological Hx Reported Past Alcohol Use History: None Reported Past Drug Use History: None Reported, Marijuana - Past Family History Mother Family Medical History: No Reported History General Exam - General Exam Comments Initial Comments: Visual Physical Exam Vital signs reviewed General: Well-appearing, nontoxic, no acute distress. Head: Normocephalic, atraumatic Eyes: PERRLA, EOMI ENT: Airway patent Chest: Nonlabored breathing Skin: No visual rash, normal skin tone Neuro: Alert and oriented 3 Musculoskeletal: No gross abnormalities General appearance: alert, in no apparent distress Eye exam: Present: normal appearance Neck exam: Present: normal inspection Respiratory exam: Present: normal lung sounds bilaterally Cardiovascular Exam: Present: regular rate, normal rhythm GI/Abdominal exam: Present: soft (Diffuse TTP. No rebound, guarding, or rigidity. ) Neurological exam: Present: alert, oriented X3 Skin exam: Present: warm, dry Course Vital Signs 04/02/23 04/03/23 21:09 00:00 Temperature 98.5 F Pulse Rate 118 H 76 Respiratory 20 19 Rate Blood Pressure 150/94 151/83 O2 Sat by Pulse 96 97 Oximetry Medical Decision Making - Medical Decision Making Was pt. sent in by a medical professional or institution (, [facility], [employer], urgent care, hospital, or senior living...) When possible be specific @ -No Did you speak to anyone other than the patient for history (EMS, parent, family, police, friend...)? What history was obtained from this source @ -No Did you review nursing and triage notes (agree or disagree)? Why? @ -I reviewed and agree with nursing and triage notes Were old charts reviewed (outside hosp., previous admission, EMS record, old EKG, old radiological studies, urgent care reports/EKG's, senior living records)? Report findings @ -No old charts were reviewed Differential Diagnosis (chest pain, altered mental status, abdominal pain women, abdominal pain men, vaginal bleeding, weakness, fever, dyspnea, syncope, headache, dizziness, GI bleed, back pain, seizure, CVA, palpatations, mental health, musculoskeletal)? @ -Differential Abdominal Pain Women: Appendicitis, Cholecystitis, diverticulosis, ischemic bowel, pancreatitis, hepatitis, UTI, gastroenteritis, AAA, incarcerated hernia, bowel obstruction, constipation, inflammatory bowel, hepatitis, peptic ulcer disease, splenic infarction, perforated viscus, vulvitis, ovarian torsion, PID, kidney stone, placenta abruption, this is not meant to be an all-inclusive list EKG interpreted by me (3pts min.). @ -As above X-rays interpreted by me (1pt min.). @ -None done CT interpreted by me (1pt min.). @ -None done U/S interpreted by me (1pt. min.). @ -None done What testing was considered but not performed or refused? (CT, X-rays, U/S, labs)? Why? @ -None What meds were considered but not given or refused? Why? @ -None Did you discuss the management of the patient with other professionals (professionals i.e. JEAN-PAUL Morocho, [employer], lab, RT, psych nurse, oncology social worker, test conductor, teacher, global chief experience officer, business case analyst)? Give summary @ -No Was smoking cessation discussed for >3mins.? @ -No Was critical care preformed (if so, how long)? @ -No Were there social determinants of health that impacted care today? How? (Home lessness, low income, unemployed, alcoholism, drug addiction, transportation, low edu. Level, literacy, decrease access to med. care, long-term, rehab)? @ -No Was there de-escalation of care discussed even if they declined (Discuss DNR or withdrawal of care, Hospice)? DNR status @ -No What co-morbidities impacted this encounter? (DM, HTN, Smoking, COPD, CAD, Cancer, CVA, ARF, Chemo, Hep., AIDS, mental health diagnosis, sleep apnea, morbid obesity)? @ -None Was patient admitted / discharged? Hospital course, mention meds given and route, prescriptions, significant lab abnormalities, going to OR and other pertinent info. @ -Discharge 27-year-old female approximately 6-7 weeks presenting to the ED with onset of nausea and abdominal pain today. Laboratory studies reviewed. Labs including CBC, CMP, UA large unremarkable. Serology panel negative. Patient did receive IV fluids and Zofran with significant movement of nausea. At this time vital signs stable afebrile. Discharged home in stable condition with prescription for Zofran. 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 Discussed return precautions with patient verbalizes agreement. Undiagnosed new problem with uncertain prognosis? @ -No Drug Therapy requiring intensive monitoring for toxicity (Heparin, Nitro, Insulin, Cardizem)? @ -No Were any procedures done? @ -No Diagnosis/symptom? @ -Nausea and vomiting/abdominal pain in Acute, or Chronic, or Acute on Chronic? @ -Acute Uncomplicated (without systemic symptoms) or Complicated (systemic symptoms)? @ -Uncomplicated Side effects of treatment? @ -No Exacerbation, Progression, or Severe Exacerbation? @ -No Poses a threat to life or bodily function? How? (Chest pain, USA, SC, pneumonia, PE, COPD, DKA, ARF, appy, cholecystitis, CVA, Diverticulitis, Homicidal, Suicidal, threat to staff... and all critical care pts) @ -No - Lab Data Result diagrams: 04/03/23 00:17 04/03/23 00:17 Lab Results 04/02/23 04/02/23 04/03/23 Range/Units 21:15 21:31 00:17 WBC 12.2 H (3.8-10.6) k/uL RBC 4.73 (3.80-5.40) m/uL Hgb 13.6 (11.4-16.0) gm/dL Hct 39.5 (34.0-46.0) % MCV 83.5 (80.0-100.0) fL MCH 28.7 (25.0-35.0) pg MCHC 34.3 (31.0-37.0) g/dL RDW 13.9 (11.5-15.5) % Plt Count 235 (150-450) k/uL MPV 9.0 Neutrophils % 91 % Lymphocytes % 5 % Monocytes % 4 % Eosinophils % 0 % Basophils % 0 % Neutrophils # 11.1 H (1.3-7.7) k/uL Lymphocytes # 0.6 L (1.0-4.8) k/uL Monocytes # 0.4 (0-1.0) k/uL Eosinophils # 0.1 (0-0.7) k/uL Basophils # 0.0 (0-0.2) k/uL PT (10.0-12.5) sec INR (<1.2) APTT (22.0-30.0) sec Sodium (137-145) mmol/L Potassium (3.5-5.1) mmol/L Chloride (98-107) mmol/L Carbon Dioxide (22-30) mmol/L Anion Gap mmol/L BUN (7-17) mg/dL Creatinine (0.52-1.04) mg/dL Est GFR (CKD-EPI)AfAm (>60 ml/min/1.73 sqM) Est GFR (CKD-EPI)NonAf (>60 ml/min/1.73 sqM) Glucose (74-99) mg/dL Calcium (8.4-10.2) mg/dL Total Bilirubin (0.2-1.3) mg/dL AST (14-36) U/L ALT (4-34) U/L Alkaline Phosphatase (38-126) U/L Total Protein (6.3-8.2) g/dL Albumin (3.5-5.0) g/dL Urine Color Light Yellow Urine Appearance Turbid H (Clear) Urine pH 6.0 (5.0-8.0) Ur Specific Jbph[facility] 1.019 (1.001-1.035) Urine Protein 2+ H (Negative) Urine Glucose (UA) Negative (Negative) Urine Ketones 2+ H (Negative) Urine Blood Negative (Negative) Urine Nitrite Negative (Negative) Urine Bilirubin Negative (Negative) Urine Urobilinogen <2.0 (<2.0) mg/dL Ur Leukocyte Esterase Negative (Negative) Urine WBC 2 (0-5) /hpf Ur Squamous Epith Cells 3 (0-4) /hpf Amorphous Sediment Many H (None) /hpf Hyaline Casts 10 H (0-2) /lpf Urine Mucus Many H (None) /hpf Influenza Type A (PCR) Not Detected (Not Detectd) Influenza Type B (PCR) Not Detected (Not Detectd) RSV (PCR) Not Detected (Not Detectd) SARS-CoV-2 (PCR) Not Detected (Not Detectd) 04/03/23 04/03/23 Range/Units 00:17 00:17 WBC (3.8-10.6) k/uL RBC (3.80-5.40) m/uL Hgb (11.4-16.0) gm/dL Hct (34.0-46.0) % MCV (80.0-100.0) fL MCH (25.0-35.0) pg MCHC (31.0-37.0) g/dL RDW (11.5-15.5) % Plt Count (150-450) k/uL MPV Neutrophils % % Lymphocytes % % Monocytes % % Eosinophils % % Basophils % % Neutrophils # (1.3-7.7) k/uL Lymphocytes # (1.0-4.8) k/uL Monocytes # (0-1.0) k/uL Eosinophils # (0-0.7) k/uL Basophils # (0-0.2) k/uL PT 10.2 (10.0-12.5) sec INR 0.9 (<1.2) APTT 22.8 (22.0-30.0) sec Sodium 138 (137-145) mmol/L Potassium 4.1 (3.5-5.1) mmol/L Chloride 99 (98-107) mmol/L Carbon Dioxide 22 (22-30) mmol/L Anion Gap 17 mmol/L BUN 14 (7-17) mg/dL Creatinine 0.38 L (0.52-1.04) mg/dL Est GFR (CKD-EPI)AfAm >90 (>60 ml/min/1.73 sqM) Est GFR (CKD-EPI)NonAf >90 (>60 ml/min/1.73 sqM) Glucose 159 H (74-99) mg/dL Calcium 10.4 H (8.4-10.2) mg/dL Total Bilirubin 0.5 (0.2-1.3) mg/dL AST 27 (14-36) U/L ALT 23 (4-34) U/L Alkaline Phosphatase 81 (38-126) U/L Total Protein 8.9 H (6.3-8.2) g/dL Albumin 5.3 H (3.5-5.0) g/dL Urine Color Urine Appearance (Clear) Urine pH (5.0-8.0) Ur Specific Jbphh (1.001-1.035) Urine Protein (Negative) Urine Glucose (UA) (Negative) Urine Ketones (Negative) Urine Blood (Negative) Urine Nitrite (Negative) Urine Bilirubin (Negative) Urine Urobilinogen (<2.0) mg/dL Ur Leukocyte Esterase (Negative) Urine WBC (0-5) /hpf Ur Squamous Epith Cells (0-4) /hpf Amorphous Sediment (None) /hpf Hyaline Casts (0-2) /lpf Urine Mucus (None) /hpf Influenza Type A (PCR) (Not Detectd) Influenza Type B (PCR) (Not Detectd) RSV (PCR) (Not Detectd) SARS-CoV-2 (PCR) (Not Detectd) Disposition Clinical Impression: Nausea & vomiting Disposition: HOME SELF-CARE Condition: Good Additional Instructions: Please return to the Emergency Department if symptoms worsen or any other concerns. Follow up with your OBGYN. Prescriptions: Ondansetron Odt [Zofran Odt] 4 mg PO Q8HR PRN #10 tab PRN Reason: Nausea Is patient prescribed a controlled substance at d/c from ED?: No Referrals: None,Stated [Primary Care Provider] - 1-2 days Time of Disposition: 02:12
[2023-04-02 21:13] VITALS: TEMP 98.5
--- NOTE | 2023-04-02 23:14 | US ---
EXAMINATION TYPE: Transabdominal ultrasound OB less than 14 weeks fetus DATE OF EXAM: 04/02/2023 9:57 PM COMPARISON: NONE CLINICAL INDICATION: Female, 27 years old with history of 9 wks . Abdominal pain; N/V blood x 1 day. Cramping. G EXAM PERFORMED: Transabdominal (TA) ultrasound of the pelvis was performed EXAM MEASUREMENTS: GESTATIONAL AGE / DATING Physician Established: Not yet established Dates by LMP: 01/29/23 (9 weeks/0 days) EDC: 11/05/23 Dates by First Scan: No previous this is first scan Dates by Current Scan for: (8 weeks/2 days) EDC: 11/10/2023 MATERNAL ANATOMY Uterus: 9.7 x 7.2 x 7.2cm Right Ovary: 4.0 x 2.9 x 2.4cm Left Ovary: Not definitively seen. Post CDS / Adnexa: Within normal limits Presence of free fluid: No Presence of corpus luteal cyst: Not seen Presence of subchorionic bleed: Endo appears heterogeneous, no crescentic hypoechoic collection to josé ggest subchorionic hematoma GESTATION / SURVEY CRL: 2.1cm (8 weeks/5 days) MSD: 2.88 (7 weeks/5 days) Yolk Sac (normal less than 6mm): 4.3mm Heart Rate: 184 bpm Rhythm: Normal IUP: Viable IUP Date of LMP: 01/29/23 Beta HcG (if available): Not available at this time Single live IUP seen measuring 8 weeks 2 days. Endometrial tissue appears heterogeneous IMPRESSION: 1. Single, live intrauterine measuring 8 weeks 2 days, with an SAMMI based on this exam of . 2. Heterogeneous appearing endometrium without discrete visualization of a subchorionic hematoma.
[2023-04-03] MEDS ORDERED: SODIUM CHLORIDE 0.9% 1,000 ML IV STA (00:18)
[2023-04-03] MEDS ORDERED: ONDANSETRON 4 MG/2 ML VIAL IVP STA (00:18)
[2023-04-03 00:26] LABS: Basophils % (A) 0 %; Eosinophils # (A) 0.1 k/uL (0-0.7); Eosinophils % (A) 0 %; HCT 39.5 % (34.0-46.0); HGB 13.6 gm/dL (11.4-16.0); Lymphocytes # (A) 0.6 k/uL (1.0-4.8); Lymphocytes % (A) 5 %; MCH 28.7 pg (25.0-35.0); MCHC 34.3 g/dL (31.0-37.0); MCV 83.5 fL (80.0-100.0); Monocytes # (A) 0.4 k/uL (0-1.0); Monocytes % (A) 4 %; Neutrophils # (A) 11.1 k/uL (1.3-7.7); Neutrophils % (A) 91 %; Platelet Count 235 k/uL (150-450); RBC 4.73 m/uL (3.80-5.40); RDW 13.9 % (11.5-15.5); WBC 12.2 k/uL (3.8-10.6)
[2023-04-03 00:37] LABS: Amorphous Sediment,Urine Many /hpf; Appearance,Urine Turbid (Clear); Bilirubin,Urine Negative (Negative); Blood,Urine Negative (Negative); Color,Urine Light Yellow; Glucose,Urine (UA) Negative (Negative); Hyaline Casts,Urine 10 /lpf (0-2); Ketones,Urine 2+ (Negative); Leukocyte Esterase,Urine Negative (Negative); Mucus,Urine Many /hpf; Nitrite,Urine Negative (Negative); Protein,Urine 2+ (Negative); Specific Gravity,Urine 1.019 (1.001-1.035); Squamous Epithelial Cell,Urine 3 /hpf (0-4); Urobilinogen,Urine <2.0 mg/dL (<2.0); WBC,Urine 2 /hpf (0-5)
[2023-04-03 00:49] LABS: ALT 23 U/L (4-34); African American GFR (CKD) >90 (>60 ml/min/1.73 sqM); Albumin 5.3 g/dL (3.5-5.0); Anion Gap 17 mmol/L; Blood Urea Nitrogen 14 mg/dL (7-17); Calcium 10.4 mg/dL (8.4-10.2); Carbon Dioxide 22 mmol/L (22-30); Chloride 99 mmol/L (98-107); Glucose 159 mg/dL (74-99); INR 0.9 (<1.2); Non-African American GFR(CKD) >90 (>60 ml/min/1.73 sqM); Partial Thromboplastin Time 22.8 sec (22.0-30.0); Potassium 4.1 mmol/L (3.5-5.1); Prothrombin Time 10.2 sec (10.0-12.5); Sodium 138 mmol/L (137-145); Total Bilirubin 0.5 mg/dL (0.2-1.3); Total Protein 8.9 g/dL (6.3-8.2)
[2023-04-03] MEDS ORDERED: LIDOCAINE 2% GLYDO JELLY 11 ML APPL MUCOUS MEM ONE (00:49)
[2023-04-03 00:50] LABS: AST 27 U/L (14-36); Alkaline Phosphatase 81 U/L (38-126)
[2023-04-03] MEDS ORDERED: ONDANSETRON 4 MG ODT STARTER PACK 2 TAB BTL PO STA (02:24)
[2023-04-03 03:05] VITALS: BP 148/91; PULSE 92; RESP 18
== END 2023-04-03 02:33 | disposition home or self-care (01) ==
LOC: EC 20:56
DX: O21.9 Vomiting of pregnancy, unspecified (principal); O26.891 Other specified pregnancy related conditions, first trimester; R10.84 Generalized abdominal pain; O99.321 Drug use complicating pregnancy, first trimester; F12.90 Cannabis use, unspecified, uncomplicated; Z20.822 Contact with and (suspected) exposure to COVID-19; Z3A.01 Less than 8 weeks gestation of pregnancy
CPT/HCPCS: 36415; 76801; 80053; 81001; 85025; 85610; 85730; 87636; 96361; 96374; 99284

== ENCOUNTER 2023-05-10 14:48 | Emergency (ER) | payer OTHER ==
[2023-05-10 15:26] VITALS: BP 166/91; PULSE 89; RESP 22; TEMP 98.6
[2023-05-10] MEDS: METOCLOPRAMIDE 5 MG/ML 2 ML VIAL IVP STA (15:33)
[2023-05-10] MEDS: PYRIDOXINE 100 MG/ML 1 ML VIAL IVP ONE (15:36)
[2023-05-10] MEDS: SODIUM CHLORIDE 0.9% 2,000 ML IV STA (15:36)
--- NOTE | 2023-05-10 15:46 | ED ---
Nausea/Vomiting/Diarrhea HPI - General Source: patient, RN notes reviewed Mode of arrival: ambulatory Limitations: no limitations - History of Present Illness MD complaint: nausea, vomiting <Kimberly [place] - Last Filed: 05/10/23 18:36> <Tk Warren - Last Filed: 05/10/23 20:51> - General Chief complaint: Nausea/Vomiting/Diarrhea Stated complaint: 14WKS preg-vomiting Time Seen by Provider: 05/10/23 15:05 - History of Present Illness Initial comments: This is a 27-year-old female who presents to the emergency department for nausea and vomiting in . Patient is 14 weeks and . Currently follows with Dr. Servin, CORE MANAGER. States that she was hospitalized for this at [facility] a couple of weeks ago, and she was found to have sludge in her gallbladder. She was given a prescription for Reglan, but has yet to pick this up from the pharmacy. However, it was effective when she was in the hospital. Pain is not localized to the right upper quadrant or the gallbladder at this time, states that she is generally uncomfortable everywhere. Denies any vaginal bleeding. (Kimberly Colorado) - Related Data Previous Rx's Medication Instructions Recorded Ondansetron Odt [Zofran Odt] 4 mg PO Q8HR PRN #10 tab 04/03/23 Cephalexin [Keflex] 500 mg PO Q8HR 5 Days #15 cap 05/10/23 Allergies Allergy/AdvReac Type Severity Reaction Status Date / Time No Known Allergies Allergy Verified 05/10/23 15:04 Review of Systems ROS Other: All systems not noted in ROS Statement are negative. <Kimberly [place] - Last Filed: 05/10/23 18:36> ROS Other: All systems not noted in ROS Statement are negative. <Tk Warren - Last Filed: 05/10/23 20:51> ROS Statement: Those systems with pertinent positive or pertinent negative responses have been documented in the HPI. Past Medical History Past Medical History: No Reported History Additional Past Medical History / Comment(s): Blood type: O+ History of Any Multi-Drug Resistant Organisms: None Reported Past Surgical History: No Surgical Hx Reported Additional Past Surgical History / Comment(s): D&C 2016 Past Anesthesia/Blood Transfusion Reactions: No Reported Reaction Past Psychological History: No Psychological Hx Reported Smoking Status: Never smoker Past Alcohol Use History: None Reported Past Drug Use History: None Reported, Marijuana - Past Family History Mother Family Medical History: No Reported History <Kimberly [place] - Last Filed: 05/10/23 18:36> General Exam Limitations: no limitations General appearance: alert, in no apparent distress Head exam: Present: atraumatic, normocephalic, normal inspection Respiratory exam: Present: normal lung sounds bilaterally. Absent: respiratory distress, wheezes, rales, rhonchi, stridor Cardiovascular Exam: Present: regular rate, normal rhythm, normal heart sounds. Absent: systolic murmur, diastolic murmur, rubs, gallop, clicks Neurological exam: Present: alert, oriented X3, CN II-XII intact Psychiatric exam: Present: normal affect, normal mood Skin exam: Present: warm, dry, intact, normal color. Absent: rash <Kimberly [place] - Last Filed: 05/10/23 18:36> Course <Tk Warren - Last Filed: 05/10/23 20:51> Vital Signs 05/10/23 15:02 Temperature 98.6 F Pulse Rate 89 Respiratory 22 Rate Blood Pressure 166/91 O2 Sat by Pulse 98 Oximetry - Reevaluation(s) Reevaluation #1: 05/10/23 19:29 reports that she feels constipated and would like to try an enema. (Tk Warren) Medical Decision Making - Lab Data Result diagrams: 05/10/23 15:37 05/10/23 15:37 <Kimberly [place] - Last Filed: 05/10/23 18:36> - Lab Data Result diagrams: 05/10/23 15:37 05/10/23 15:37 <Tk Warren - Last Filed: 05/10/23 20:51> - Medical Decision Making This is a 27-year-old female who presents to the emergency department for nausea and vomiting. Was pt. sent in by a medical professional or institution? @ -No Did you speak to anyone other than the patient for history? @ -No Did you review nursing and triage notes? @ -Yes, and I agree, it is accurate with regards to the patient's symptoms. Were old charts reviewed? @ -No Differential Diagnosis? @ -Differential Nausea and Vomiting: Gastroenteritis, cholecystitis, appendicitis, pancreatitis, migraine, benign positional vertigo, food borne illness, pyelonephritis, irritable bowel syndrome, influenza, Covid, GERD, incarcerated hernia, intestinal obstruction, this is not meant to be an all-inclusive list. EKG interpreted by me (3pts min.)? @ -Not obtained X-rays interpreted by me (1pt min.)? @ -Not obtained CT interpreted by me (1pt min.)? @ -Not obtained U/S interpreted by me (1pt. min.)? @ -Not obtained What testing was considered but not performed? (CT, X-rays, U/S, labs)? Why? @ -None What meds were considered but not given? Why? @ -None Did you discuss the management of the patient with other professionals? @ -No Did you reconcile home meds? @ -No Was smoking cessation discussed for >3mins.? @ -No Was critical care preformed (if so, how long)? @ -No Were there social determinants of health that impacted care today? How? (Homelessness, low income, unemployed, alcoholism, drug addiction, transportation, low edu. Level, literacy, decrease access to med. care, residential, rehab)? @ -No Was there de-escalation of care discussed even if they declined? (Discuss DNR or withdrawal of care, Hospice)? @ -No What co-morbidities impacted this encounter? (DM, HTN, Smoking, COPD, CAD, Cancer, CVA, Hep., AIDS, mental health diagnosis, sleep apnea, morbid obesity)? @ - Was patient admitted / discharged? @ -Lab work obtained revealing hypokalemia with a potassium of 3.1 and was otherwise relatively unremarkable. UA does reveal a few bacteria and is suggestive of asymptomatic bacteriuria. Patient initially treated with IV fluids, vitamin B6, and Reglan, given that Reglan has been effective for her in the past. She had improvement, however after getting up to use the restroom, she started to feel nauseous again. She was subsequently given a dose of Compazine. 40 mEq of K-dur administered for the hypokalemia. Case signed out to Prakash Warren PA-C, at shift completion. Undiagnosed new problem with uncertain prognosis? @ -None Drug Therapy requiring intensive monitoring for toxicity (Heparin, Nitro, Insulin, Cardizem)? @ -None Were any procedures done? @ -None (Kimberly [place]) Case discussed with Dr. Rosales of CORE MANAGER who advises symptomatic treatment with Phenergan suppositories and sublingual Zofran. In regards to potassium repletion advises providing 10 meq IV Was going to reevaluate the patient at 2044. Upon entry of the room patient was nowhere to be found and IV on the ground. Patient eloped which was confirmed by security. (Tk Warren) - Lab Data Lab Results 05/10/23 05/10/23 05/10/23 Range/Units 15:37 15:37 17:34 WBC 11.0 H (3.8-10.6) k/uL RBC 4.36 (3.80-5.40) m/uL Hgb 12.7 (11.4-16.0) gm/dL Hct 37.0 (34.0-46.0) % MCV 84.8 (80.0-100.0) fL MCH 29.2 (25.0-35.0) pg MCHC 34.4 (31.0-37.0) g/dL RDW 14.0 (11.5-15.5) % Plt Count 188 (150-450) k/uL MPV 8.6 Neutrophils % 87 % Lymphocytes % 9 % Monocytes % 3 % Eosinophils % 0 % Basophils % 0 % Neutrophils # 9.5 H (1.3-7.7) k/uL Lymphocytes # 1.0 (1.0-4.8) k/uL Monocytes # 0.4 (0-1.0) k/uL Eosinophils # 0.0 (0-0.7) k/uL Basophils # 0.0 (0-0.2) k/uL Sodium 139 (137-145) mmol/L Potassium 3.1 L (3.5-5.1) mmol/L Chloride 106 (98-107) mmol/L Carbon Dioxide 23 (22-30) mmol/L Anion Gap 10 mmol/L BUN 8 (7-17) mg/dL Creatinine 0.34 L (0.52-1.04) mg/dL Est GFR (CKD-EPI)AfAm >90 (>60 ml/min/1.73 sqM) Est GFR (CKD-EPI)NonAf >90 (>60 ml/min/1.73 sqM) Glucose 133 H (74-99) mg/dL Calcium 9.8 (8.4-10.2) mg/dL Total Bilirubin 0.4 (0.2-1.3) mg/dL AST 20 (14-36) U/L ALT 16 (4-34) U/L Alkaline Phosphatase 72 (38-126) U/L Total Protein 7.1 (6.3-8.2) g/dL Albumin 4.3 (3.5-5.0) g/dL Amylase 69 (30-110) U/L Lipase 86 (23-300) U/L HCG, Quant 66484.4 mIU/mL Urine Color Yellow Urine Appearance Turbid H (Clear) Urine pH 5.5 (5.0-8.0) Ur Specific [place] 1.019 (1.001-1.035) Urine Protein Trace H (Negative) Urine Glucose (UA) Negative (Negative) Urine Ketones Trace H (Negative) Urine Blood Negative (Negative) Urine Nitrite Negative (Negative) Urine Bilirubin Negative (Negative) Urine Urobilinogen <2.0 (<2.0) mg/dL Ur Leukocyte Esterase Moderate H (Negative) Urine RBC 4 (0-5) /hpf Urine WBC 8 H (0-5) /hpf Ur Squamous Epith Cells 3 (0-4) /hpf Amorphous Sediment Moderate H (None) /hpf Urine Bacteria Few H (None) /hpf Urine Mucus Many H (None) /hpf Disposition <Kimberly [place] - Last Filed: 05/10/23 18:36> <Tk Warren - Last Filed: 05/10/23 20:51> Clinical Impression: Nausea and vomiting during Disposition: LEFT AGAINST MEDICAL ADVICE Prescriptions: Cephalexin [Keflex] 500 mg PO Q8HR 5 Days #15 cap Referrals: None,Stated [Primary Care Provider] - 1-2 days
[2023-05-10 15:49] LABS: Basophils % (A) 0 %; Eosinophils % (A) 0 %; HGB 12.7 gm/dL (11.4-16.0); Lymphocytes % (A) 9 %; MCH 29.2 pg (25.0-35.0); MCHC 34.4 g/dL (31.0-37.0); MCV 84.8 fL (80.0-100.0); Mean Platelet Volume 8.6; Monocytes # (A) 0.4 k/uL (0-1.0); Monocytes % (A) 3 %; Neutrophils # (A) 9.5 k/uL (1.3-7.7); Neutrophils % (A) 87 %; Platelet Count 188 k/uL (150-450); RBC 4.36 m/uL (3.80-5.40)
[2023-05-10 15:59] LABS: ALT 16 U/L (4-34); AST 20 U/L (14-36); African American GFR (CKD) >90 (>60 ml/min/1.73 sqM); Albumin 4.3 g/dL (3.5-5.0); Alkaline Phosphatase 72 U/L (38-126); Amylase 69 U/L (30-110); Anion Gap 10 mmol/L; Blood Urea Nitrogen 8 mg/dL (7-17); Calcium 9.8 mg/dL (8.4-10.2); Carbon Dioxide 23 mmol/L (22-30); Chloride 106 mmol/L (98-107); Glucose 133 mg/dL (74-99); Lipase 86 U/L (23-300); Non-African American GFR(CKD) >90 (>60 ml/min/1.73 sqM); Potassium 3.1 mmol/L (3.5-5.1); Sodium 139 mmol/L (137-145); Total Bilirubin 0.4 mg/dL (0.2-1.3); Total Protein 7.1 g/dL (6.3-8.2)
[2023-05-10 18:13] LABS: Amorphous Sediment,Urine Moderate /hpf; Appearance,Urine Turbid (Clear); Bacteria,Urine Few /hpf; Bilirubin,Urine Negative (Negative); Blood,Urine Negative (Negative); Color,Urine Yellow; Glucose,Urine (UA) Negative (Negative); Ketones,Urine Trace (Negative); Leukocyte Esterase,Urine Moderate (Negative); Mucus,Urine Many /hpf; Nitrite,Urine Negative (Negative); PH, Urine 5.5 (5.0-8.0); Protein,Urine Trace (Negative); RBC,Urine 4 /hpf (0-5); Specific Gravity,Urine 1.019 (1.001-1.035); Squamous Epithelial Cell,Urine 3 /hpf (0-4); Urobilinogen,Urine <2.0 mg/dL (<2.0); WBC,Urine 8 /hpf (0-5)
[2023-05-10 18:17] LABS: HCG,Quantitative Serum 82309.4 mIU/mL
[2023-05-10] MEDS: PROCHLORPERAZINE INJ 10 MG/2 ML VIAL IVP STA (18:50)
[2023-05-10] MEDS: POTASSIUM CHLORIDE ER 20 MEQ TAB.ER PO STA (18:50)
[2023-05-10] MEDS: NA PHOS,M-B/NA PHOS,DI-BA 133 ML ENEMA RECTAL STA (20:03)
[2023-05-10] MEDS: POTASSIUM CHLORIDE 10 MEQ in WATER FOR INJECTION 1 100ML.BAG IVPB ONE (22:56)
== END 2023-05-10 20:50 | disposition left against medical advice (07) ==
LOC: EC 14:48
DX: O21.9 Vomiting of pregnancy, unspecified (principal); O99.322 Drug use complicating pregnancy, second trimester; F12.90 Cannabis use, unspecified, uncomplicated; Z3A.14 14 weeks gestation of pregnancy
CPT/HCPCS: 36415; 80053; 82150; 83690; 85025; 81001; 84702; 99284; 96374; 96375 ×2; 96361 ×5; J0780; J3415; J2765

== ENCOUNTER 2023-06-01 14:50 | Outpatient (CLI) | payer OTHER ==
[2023-06-01] MEDS: LACTATED RINGERS 1,000 ML IV SCH (15:45)
[2023-06-01 16:07] LABS: Appearance,Urine Cloudy (Clear); Bilirubin,Urine Negative (Negative); Blood,Urine Negative (Negative); Color,Urine Yellow; Glucose,Urine (UA) Negative (Negative); Ketones,Urine 1+ (Negative); Leukocyte Esterase,Urine Large (Negative); Mucus,Urine Many /hpf; Nitrite,Urine Negative (Negative); Protein,Urine Trace (Negative); RBC,Urine 2 /hpf (0-5); Specific Gravity,Urine 1.022 (1.001-1.035); Squamous Epithelial Cell,Urine 10 /hpf (0-4); WBC,Urine 8 /hpf (0-5)
[2023-06-01] MEDS ORDERED: ONDANSETRON 4 MG/2 ML VIAL IM STA (16:19)
[2023-06-01] MEDS: ONDANSETRON 4 MG/2 ML VIAL IVP STA (16:38)
[2023-06-01] MEDS: METOCLOPRAMIDE 5 MG/ML 2 ML VIAL IVP STA (18:14)
[2023-06-01] MEDS: FAMOTIDINE 20 MG/2 ML VIAL IV SCH (18:18)
[2023-06-01 19:57] VITALS: BP 130/80; PULSE 90; RESP 16; TEMP 96.6
--- NOTE | 2023-06-01 20:52 | P.MSEPDOC ---
Presenting Problems - Arrival Data Date of Arrival on Unit: 06/01/23 Time of Arrival on Unit: 14:51 Mode of Transport: Ambulatory - Complaint OB-Reason for Admission/Chief Complaint: Hyperemesis Medical History - Information : 4 Para: 1 Term: 1 : 0 Abortions: Spontaneous or Elective: 2 Number of Living Children: 1 - Gestational Age Gestational Age by SAMMI (wks/days): 17 Weeks and 4 Days Review of Systems - Review of Systems Constitutional: Recent weight loss Breast: No problems ENT: No problems Cardiovascular: No problems Respiratory: No problems Gastrointestinal: No problems Genitourinary: No problems Musculoskeletal: No problems Neurological: Dizziness Skin: No problems Vital Signs - Temperature Temperature: 96.6 F - Pulse Right Brachial Pulse Rate: 90 Pulse Assessment Method: Automatic Cuff - Respirations Respiratory Rate: 16 Oxygen Delivery Method: Room Air O2 Sat by Pulse Oximetry: 100 - Blood Pressure Right Arm Blood Pressure: 130/80 Blood Pressure Mean: 96 Blood Pressure Source: Automatic Cuff Medical Screen Scoring - Uterine Contractions Frequency From (mins): 0 Frequency To (mins): 0 - Assessment - Baby A Baseline FHR: 140 Physician Notification - Physician Notified Physician Notified Date: 06/01/23 Physician Notified Time: 16:19 Physician: Trisha Servin Order Received: Yes (IV hydration, zofran, reglan, pepcid, discharge when feeling better) Maternal Triage Index - Scheduled/Requesting Priority 5 Scheduled/Requesting Priority 5: Yes Criteria Met for Priority 5: standing written order for IV hydration prn for hyperemesis 17.4 weeks Disposition - Disposition OB Disposition: Triage, Discharge to home, Written follow up instructions reviewed Discharge Date: 06/01/23 Discharge Time: 19:00 I agree with the RN Medical Screening Exam: Yes Physician's MSE Comment: I have neither seen nor examined the patient Case reviewed; plan agreed upon as documented in EMR&OBIX.: Yes Diagnosis: MATERNAL CARE FOR PROBLEM, UNSP, SECOND * DO NOT USE *
== END 2023-06-01 19:00 ==
LOC: FBPOP 14:50
PROVIDERS: ATTEND Obstetrics & Gynecology
DX: O21.0 Mild hyperemesis gravidarum (principal); Z3A.17 17 weeks gestation of pregnancy; Z79.82 Long term (current) use of aspirin
CPT/HCPCS: 96361; 96374; 96375; 81001; J2765; J2405; J3490

== ENCOUNTER 2023-07-25 13:30 | Outpatient (CLI) | payer OTHER ==
[2023-07-25] MEDS: LACTATED RINGERS 1,000 ML IV SCH (14:14)
[2023-07-25] MEDS: ONDANSETRON 4 MG/2 ML VIAL IVP STA (14:23)
[2023-07-25] MEDS: FAMOTIDINE 20 MG/2 ML VIAL IV SCH (14:28)
[2023-07-25 15:45] VITALS: BP 131/66; PULSE 85; RESP 18; TEMP 97.5
--- NOTE | 2023-07-25 18:25 | P.MSEPDOC ---
Presenting Problems - Arrival Data Date of Arrival on Unit: 07/25/23 Time of Arrival on Unit: 13:30 Mode of Transport: Ambulatory - Complaint OB-Reason for Admission/Chief Complaint: Acute Nausea/Vomiting Comment: states she felt some leaking while vomitting around 0730 Medical History - Information : 4 Para: 1 Term: 1 : 0 Abortions: Spontaneous or Elective: 2 Number of Living Children: 1 - Gestational Age Gestational Age by SAMMI (wks/days): 25 Weeks and 2 Days Review of Systems - Review of Systems Constitutional: No problems Breast: No problems ENT: No problems Cardiovascular: No problems Respiratory: No problems Gastrointestinal: No problems Genitourinary: No problems Musculoskeletal: No problems Neurological: No problems Skin: No problems Vital Signs - Temperature Temperature: 97.5 F Temperature Source: Temporal Artery Scan - Pulse Right Brachial Pulse Rate: 85 Pulse Assessment Method: Automatic Cuff - Respirations Respiratory Rate: 18 Oxygen Delivery Method: Room Air O2 Sat by Pulse Oximetry: 99 - Blood Pressure Right Arm Blood Pressure: 131/66 Blood Pressure Mean: 87 Blood Pressure Source: Automatic Cuff Medical Screen Scoring - Uterine Contractions Intensity: Absent - Assessment - Baby A Baseline FHR: 150 Physician Notification - Physician Notified Physician Notified Date: 07/25/23 Physician Notified Time: 14:00 Physician: Trisha Servin Order Received: Yes - Notification Comment Comment: IV fluids, Zofran, Pepcid and may go home Maternal Triage Index - Maternal Triage Index Presenting for scheduled procedure w/no complaint: No - Stat/Priority 1 Stat Priority 1: No - Urgent/Priority 2 Urgent Priority 2: No - Prompt/Priority 3 Prompt Priority 3: No - Non-Urgent/Priority 4 Non-Urgent Priority 4: Yes Criteria Met for Priority 4: 25 weeks gestation with nausea and vomitting, states she felt wet when she vomitted Disposition - Disposition OB Disposition: Discharge to home, Written follow up instructions reviewed Discharge Date: 07/25/23 Discharge Time: 15:00 I agree with the RN Medical Screening Exam: Yes Physician's MSE Comment: I have neither seen nor examined the patient Case reviewed; plan agreed upon as documented in EMR&OBIX.: Yes Diagnosis: MATERNAL CARE FOR PROBLEM, UNSP, SECOND * DO NOT USE *
== END 2023-07-25 15:00 | disposition home or self-care (01) ==
LOC: FBPOP 13:30
PROVIDERS: ATTEND Obstetrics & Gynecology
DX: O21.9 Vomiting of pregnancy, unspecified (principal); Z3A.25 25 weeks gestation of pregnancy
CPT/HCPCS: 96361; 96374; 96375; 84112; G0463; J2405; J3490; 99214

== ENCOUNTER 2023-08-22 05:35 | Outpatient (CLI) | payer OTHER ==
[2023-08-22 06:49] VITALS: BP 131/68; PULSE 90; RESP 18; TEMP 96.6
--- NOTE | 2023-10-12 14:56 | P.MSEPDOC ---
Presenting Problems - Arrival Data Date of Arrival on Unit: 08/22/23 Time of Arrival on Unit: 05:35 Mode of Transport: Ambulatory - Complaint OB-Reason for Admission/Chief Complaint: Vaginal Bleeding Comment: Pt states onset of vaginal bleeding during intercourse at approx 0500. Red splatters on legs/feet. Pt denies continued bleeding. Pt denies low lying or placenta previa. Pt states fetus IUGR. +FM Medical History - Information : 4 Para: 1 Term: 1 Abortions: Spontaneous or Elective: 2 Number of Living Children: 1 - Gestational Age Gestational Age by SAMMI (wks/days): 29 Weeks and 2 Days Review of Systems - Review of Systems Constitutional: No problems Breast: No problems ENT: No problems Cardiovascular: No problems Respiratory: No problems Gastrointestinal: No problems Genitourinary: No problems Musculoskeletal: No problems Neurological: No problems Skin: No problems Vital Signs - Temperature Temperature: 96.6 F Temperature Source: Temporal Artery Scan - Pulse Right Sitting Brachial Pulse Rate: 90 Pulse Assessment Method: Automatic Cuff - Respirations Respiratory Rate: 18 Oxygen Delivery Method: Room Air O2 Sat by Pulse Oximetry: 97 - Blood Pressure Right Arm Sitting Blood Pressure: 131/68 Blood Pressure Mean: 89 Blood Pressure Source: Automatic Cuff Medical Screen Scoring - Assessment - Baby A Baseline FHR: 130 Heart Rate - NICHD Category: Category I (Normal) NST: Reactive Physician Notification - Physician Notified Physician Notified Date: 08/22/23 Physician Notified Time: 06:15 Physician: Trisha eSrvin New Order Received: Yes - Notification Comment Comment: Spk c\Dr. Servin, advsd , 04/29, c/o vaginal bleeding during intercourse approx 1hr 15min ago. FHT reactive for GA, no uterine activity, ab soft/nontender. Sterile spec exam: 1 small dark red/brown clot, no active bleeding at cervix. Order rec'd to d/c pt home, pelvic rest until next appt. Maternal Triage Index - Urgent/Priority 2 Urgent Priority 2: Yes Provider Notified: Trisha Servin Provider Notified Time: 06:15 Criteria Met for Priority 2: vaginal bleeding, 2 Disposition - Disposition OB Disposition: Discharge to home, Written follow up instructions reviewed Discharge Date: 06/01/24 Discharge Time: 06:25 I agree with the RN Medical Screening Exam: Yes Physician's MSE Comment: I have neither seen nor examined the patient Case reviewed; plan agreed upon as documented in EMR&OBIX.: Yes Diagnosis: MATERNAL CARE FOR PROBLEM, UNSP, THIRD * DO NOT USE *
== END 2023-08-22 06:25 | disposition home or self-care (01) ==
LOC: FBPOP 05:35
PROVIDERS: ATTEND Obstetrics & Gynecology
DX: O46.93 Antepartum hemorrhage, unspecified, third trimester (principal); Z3A.29 29 weeks gestation of pregnancy
CPT/HCPCS: 59025; G0463; 99213

== ENCOUNTER 2023-08-24 10:53 | Outpatient (CLI) | payer OTHER ==
[2023-08-24 13:30] VITALS: BP 126/73; PULSE 81; RESP 16; TEMP 96.7
--- NOTE | 2023-09-13 15:48 | P.MSEPDOC ---
Presenting Problems - Arrival Data Date of Arrival on Unit: 08/24/23 Time of Arrival on Unit: 11:10 Mode of Transport: Ambulatory - Complaint OB-Reason for Admission/Chief Complaint: Decreased Movement, Vaginal Bleeding Comment: pinkish spotting on thursday then reddish today. not feeling baby today also got scared Medical History - Information : 4 Para: 1 Term: 1 : 0 Abortions: Spontaneous or Elective: 2 Number of Living Children: 1 - Gestational Age Gestational Age by SAMMI (wks/days): 29 Weeks and 4 Days Review of Systems - Review of Systems Constitutional: No problems Breast: No problems ENT: No problems Cardiovascular: No problems Respiratory: No problems Gastrointestinal: No problems Genitourinary: No problems Musculoskeletal: No problems Neurological: No problems Skin: No problems Vital Signs - Temperature Temperature: 96.7 F Temperature Source: Temporal Artery Scan - Pulse Right Radial Pulse Rate: 81 Pulse Assessment Method: Automatic Cuff - Respirations Respiratory Rate: 16 Oxygen Delivery Method: Room Air O2 Sat by Pulse Oximetry: 99 - Blood Pressure Right Arm Blood Pressure: 126/73 Blood Pressure Mean: 90 Blood Pressure Source: Automatic Cuff Medical Screen Scoring - Cervical Exam Membranes: Intact - Assessment - Baby A Baseline FHR: 135 Heart Rate - NICHD Category: Category I (Normal) NST: Reactive Physician Notification - Physician Notified Physician Notified Date: 08/24/23 Physician Notified Time: 11:50 Physician: Trisha Servin Order Received: Yes (discharge home) - Notification Comment Comment: has nst scheduled for tomorrow. and appt in 3 weeks. Maternal Triage Index - Non-Urgent/Priority 4 Non-Urgent Priority 4: Yes Criteria Met for Priority 4: spotting. after intercourse on thursday and not feeling baby move today. reactive nst today and no active bleeding seen Disposition - Disposition OB Disposition: Discharge to home, Written follow up instructions reviewed Discharge Date: 08/24/23 Discharge Time: 12:10 I agree with the RN Medical Screening Exam: Yes Physician's MSE Comment: I have neither seen nor examined the patient Case reviewed; plan agreed upon as documented in EMR&OBIX.: Yes Diagnosis: MATERNAL CARE FOR PROBLEM, UNSP, THIRD * DO NOT USE *
== END 2023-08-24 12:10 | disposition home or self-care (01) ==
LOC: FBPOP 10:53
PROVIDERS: ATTEND Obstetrics & Gynecology
DX: O36.8131 Decreased fetal movements, third trimester, fetus 1 (principal); O46.93 Antepartum hemorrhage, unspecified, third trimester; Z3A.29 29 weeks gestation of pregnancy
CPT/HCPCS: 59025; G0463; 99213

== ENCOUNTER 2023-08-29 11:03 | Outpatient (CLI) | payer OTHER ==
[2023-08-29] MEDS: LACTATED RINGERS 1,000 ML IV ONE (11:43)
[2023-08-29] MEDS: METOCLOPRAMIDE 5 MG/ML 2 ML VIAL IVP STA (11:44)
[2023-08-29] MEDS: PANTOPRAZOLE 40 MG/10 ML VIAL IVP STA (12:29)
[2023-08-29 12:40] VITALS: BP 122/74; PULSE 104; RESP 18; TEMP 97.7
--- NOTE | 2023-09-26 11:43 | P.MSEPDOC ---
Presenting Problems - Arrival Data Date of Arrival on Unit: 08/29/23 Time of Arrival on Unit: 11:03 Mode of Transport: Ambulatory - Complaint OB-Reason for Admission/Chief Complaint: Hyperemesis Medical History - Information : 4 Para: 1 Term: 1 : 0 Abortions: Spontaneous or Elective: 2 Number of Living Children: 1 - Gestational Age Gestational Age by SAMMI (wks/days): 30 Weeks and 2 Days Review of Systems - Review of Systems Constitutional: No problems Breast: No problems ENT: No problems Cardiovascular: No problems Respiratory: No problems Gastrointestinal: No problems Genitourinary: No problems Musculoskeletal: No problems Neurological: No problems Skin: No problems Vital Signs - Temperature Temperature: 97.7 F Temperature Source: Temporal Artery Scan - Pulse Pulse Oximetery Pulse Rate: 104 Pulse Assessment Method: Pulse Oximetry - Respirations Respiratory Rate: 18 Oxygen Delivery Method: Room Air O2 Sat by Pulse Oximetry: 97 - Blood Pressure Right Arm Blood Pressure: 122/74 Blood Pressure Mean: 90 Blood Pressure Source: Automatic Cuff Medical Screen Scoring - Assessment - Baby A Baseline FHR: 135 Heart Rate - NICHD Category: Category I (Normal) NST: Reactive Physician Notification - Physician Notified Physician Notified Date: 08/29/23 Physician Notified Time: 11:35 Physician: Edwin Cruz New Order Received: Yes - Notification Comment Comment: Dr. Cruz on unit, report given that pt has HG and has been vomitting since yesterday morning. Pt normally takes Reglan and pepcid at home but has been unable to take them due to vomitting. Orders to start an IV, give a 2L bolus of LR, 10mg Reglan IVP, 40mg Protonix IVP, and send a UA. 1202 - Dr. Cruz on unit, RN reported pt's reaction and that she wants to go home without any more IV fluids or meds. MD giving orders to discharge pt home with instructions to take her home nausea meds and try OTC Prilosec as well. Maternal Triage Index - Maternal Triage Index Presenting for scheduled procedure w/no complaint: No - Stat/Priority 1 Stat Priority 1: No - Urgent/Priority 2 Urgent Priority 2: No - Prompt/Priority 3 Prompt Priority 3: No - Non-Urgent/Priority 4 Non-Urgent Priority 4: Yes Criteria Met for Priority 4: 30 2/7wks, HG, N/V Disposition - Disposition OB Disposition: Discharge to home Discharge Date: 08/29/23 Discharge Time: 12:05 I agree with the RN Medical Screening Exam: Yes Physician's MSE Comment: I have neither seen nor examined the patient. Case reviewed; plan agreed upon as documented in EMR&OBIX.: Yes Diagnosis: RELATED CONDITIONS, UNSPECIFIED, THIRD TRIMESTER
== END 2023-08-29 12:05 | disposition home or self-care (01) ==
LOC: FBPOP 11:03
PROVIDERS: ATTEND Obstetrics & Gynecology
DX: O21.2 Late vomiting of pregnancy (principal); Z3A.30 30 weeks gestation of pregnancy
CPT/HCPCS: 96374; G0463; J2765; 99214

== ENCOUNTER 2023-09-01 11:42 | Outpatient (CLI) | payer OTHER ==
[2023-09-01] MEDS: LACTATED RINGERS 1,000 ML IV ONE (12:10)
[2023-09-01] MEDS: ONDANSETRON 4 MG/2 ML VIAL IVP STA (12:17)
[2023-09-01] MEDS: FAMOTIDINE 20 MG/2 ML VIAL IV STA (12:48)
[2023-09-01] MEDS ORDERED: METOCLOPRAMIDE 5 MG/ML 2 ML VIAL IVP STA (12:50)
[2023-09-01] MEDS: METOCLOPRAMIDE 5 MG/ML 2 ML VIAL IVP STA (12:56)
[2023-09-01 14:25] LABS: Basophils % (A) 0 %; Eosinophils % (A) 0 %; HCT 34.7 % (34.0-46.0); HGB 11.8 gm/dL (11.4-16.0); Lymphocytes # (A) 1.1 k/uL (1.0-4.8); Lymphocytes % (A) 11 %; MCH 29.3 pg (25.0-35.0); MCV 86.1 fL (80.0-100.0); Mean Platelet Volume 9.1; Monocytes # (A) 0.6 k/uL (0-1.0); Monocytes % (A) 6 %; Neutrophils # (A) 8.1 k/uL (1.3-7.7); Neutrophils % (A) 82 %; Platelet Count 219 k/uL (150-450); RBC 4.03 m/uL (3.80-5.40); RDW 13.5 % (11.5-15.5); WBC 9.9 k/uL (3.8-10.6)
[2023-09-01 14:29] LABS: ALT 15 U/L (4-34); AST 22 U/L (14-36); African American GFR (CKD) >90 (>60 ml/min/1.73 sqM); Appearance,Urine Cloudy (Clear); Bacteria,Urine Rare /hpf; Bilirubin,Urine Negative (Negative); Blood Urea Nitrogen 7 mg/dL (7-17); Blood,Urine Negative (Negative); Color,Urine Yellow; Glucose,Urine (UA) Negative (Negative); Ketones,Urine 3+ (Negative); LDH 169 U/L (120-246); Leukocyte Esterase,Urine Moderate (Negative); Mucus,Urine Few /hpf; Nitrite,Urine Negative (Negative); Non-African American GFR(CKD) >90 (>60 ml/min/1.73 sqM); Protein,Urine 1+ (Negative); RBC,Urine 1 /hpf (0-5); Specific Gravity,Urine 1.019 (1.001-1.035); Squamous Epithelial Cell,Urine 3 /hpf (0-4); Uric Acid 5.6 mg/dL (3.7-7.4); WBC,Urine 19 /hpf (0-5)
[2023-09-01 14:37] LABS: Creatinine,Urine Random 262.6 mg/dL; Protein/Creatinine Ratio,Urine 0.088
[2023-09-01 16:10] VITALS: BP 140/84; PULSE 87; RESP 16; TEMP 97.5
--- NOTE | 2023-09-13 15:52 | P.MSEPDOC ---
Presenting Problems - Arrival Data Date of Arrival on Unit: 09/01/23 Time of Arrival on Unit: 11:43 Mode of Transport: Ambulatory - Complaint OB-Reason for Admission/Chief Complaint: Hyperemesis Medical History - Information : 4 Para: 1 Term: 1 : 0 Abortions: Spontaneous or Elective: 2 Number of Living Children: 1 - Gestational Age Gestational Age by SAMMI (wks/days): 30 Weeks and 5 Days Review of Systems - Review of Systems Constitutional: No problems Breast: No problems ENT: No problems Cardiovascular: No problems Respiratory: No problems Gastrointestinal: No problems Genitourinary: No problems Musculoskeletal: No problems Neurological: No problems Skin: No problems Vital Signs - Temperature Temperature: 97.5 F Temperature Source: Temporal Artery Scan - Pulse Right Brachial Pulse Rate: 87 Pulse Assessment Method: Automatic Cuff - Respirations Respiratory Rate: 16 Oxygen Delivery Method: Room Air - Blood Pressure Right Arm Blood Pressure: 140/84 Blood Pressure Mean: 102 Blood Pressure Source: Automatic Cuff Medical Screen Scoring - Assessment - Baby A Baseline FHR: 125 Heart Rate - NICHD Category: Category I (Normal) NST: Reactive Physician Notification - Physician Notified Physician Notified Date: 09/01/23 Physician Notified Time: 12:10 Physician: Trisha Servin Order Received: Yes Maternal Triage Index - Maternal Triage Index Presenting for scheduled procedure w/no complaint: No - Stat/Priority 1 Stat Priority 1: No - Urgent/Priority 2 Urgent Priority 2: No - Prompt/Priority 3 Prompt Priority 3: Yes Criteria Met for Priority 3: BP 163/89. BP 153/96 Disposition - Disposition OB Disposition: Discharge to home Discharge Date: 09/01/23 Discharge Time: 14:50 I agree with the RN Medical Screening Exam: Yes Physician's MSE Comment: I have neither seen nor examined the patient Case reviewed; plan agreed upon as documented in EMR&OBIX.: Yes Diagnosis: MATERNAL CARE FOR PROBLEM, UNSP, THIRD * DO NOT USE *
== END 2023-09-01 14:50 | disposition home or self-care (01) ==
LOC: FBPOP 11:42
PROVIDERS: ATTEND Obstetrics & Gynecology
DX: O21.9 Vomiting of pregnancy, unspecified (principal); Z3A.30 30 weeks gestation of pregnancy
CPT/HCPCS: 59025; 96361; 96374; 96375; 36415; 82570; 84156; 82565; 83615; 84450; 84460; 84520; 84550; 85025; 81001; G0463; J2765; J2405; J3490; 99215

== ENCOUNTER 2023-09-11 12:51 | Outpatient (CLI) | payer OTHER ==
--- NOTE | 2023-09-13 16:01 | P.MSEPDOC ---
Presenting Problems - Arrival Data Date of Arrival on Unit: 09/11/23 Time of Arrival on Unit: 12:55 Mode of Transport: Ambulatory - Complaint OB-Reason for Admission/Chief Complaint: NST Medical History - Information : 4 Para: 1 Number of Living Children: 1 - Gestational Age Gestational Age by SAMMI (wks/days): 32 Weeks and 1 Days Review of Systems - Review of Systems Constitutional: No problems Breast: No problems ENT: No problems Cardiovascular: No problems Respiratory: No problems Gastrointestinal: No problems Genitourinary: No problems Musculoskeletal: No problems Neurological: No problems Skin: No problems Physician Notification - Physician Notified Physician Notified Date: 09/11/23 Physician Notified Time: 13:45 Physician: Trisha Servin Order Received: Yes Maternal Triage Index - Maternal Triage Index Presenting for scheduled procedure w/no complaint: No - Stat/Priority 1 Stat Priority 1: No - Urgent/Priority 2 Urgent Priority 2: No - Prompt/Priority 3 Prompt Priority 3: No - Non-Urgent/Priority 4 Non-Urgent Priority 4: No - Scheduled/Requesting Priority 5 Scheduled/Requesting Priority 5: Yes Criteria Met for Priority 5: NST per written order Disposition - Disposition OB Disposition: Discharge to home Discharge Date: 09/11/23 Discharge Time: 14:00 I agree with the RN Medical Screening Exam: Yes Physician's MSE Comment: I have neither seen nor examined the patient Case reviewed; plan agreed upon as documented in EMR&OBIX.: Yes Diagnosis: MATERNAL CARE FOR PROBLEM, UNSP, THIRD * DO NOT USE *
== END 2023-09-11 14:00 | disposition home or self-care (01) ==
LOC: FBPOP 12:51
PROVIDERS: ATTEND Obstetrics & Gynecology
DX: O36.5930 Maternal care for other known or suspected poor fetal growth, third trimester, not applicable or unspecified (principal); Z3A.32 32 weeks gestation of pregnancy
CPT/HCPCS: 59025

== ENCOUNTER 2023-10-15 15:33 | Outpatient (CLI) | payer OTHER ==
[2023-10-15] MEDS: DEXTROSE 5%-LACTATED RINGERS 1,000 ML IV ONE (16:35)
[2023-10-15] MEDS: PROCHLORPERAZINE INJ 10 MG/2 ML VIAL IVP STA (16:35)
[2023-10-15] MEDS: FAMOTIDINE 20 MG/2 ML VIAL IV STA (17:13)
--- NOTE | 2023-10-15 17:26 | US ---
EXAMINATION TYPE: US OB BPP wo non-stress DATE OF EXAM: 10/15/2023 COMPARISON: NONE CLINICAL INDICATION: Female, 28 years old with history of IUGR; N/V TECHNIQUE: Transabdominal (TA). Scoring by the systems software manager during real-time assessment. FINDINGS: BPP PARAMETERS: PRESENTATION: Vertex LIE: Longitudinal?? HEART RATE: 125 bpm RHYTHM: Normal DEBBY: 24.1 DIAPHRAGM IMAGED: yes BPP SCORIN. Breathin (1 episode of breathing of 30 second duration in 30 minutes of scanning time) 2. Movement: 2 (at least 3 discrete body movements in 30 minutes) 3. Tone: 2 (1 episode of active flexion/extension of limb) 4. DEBBY: 2 (DEBBY index > 5cm) IMPRESSION: TOTAL SCORE: 8 / 8
[2023-10-15 17:56] VITALS: BP 147/95; PULSE 101; RESP 16; TEMP 95.7
== END 2023-10-15 17:27 | disposition home or self-care (01) ==
LOC: FBPOP 15:33
PROVIDERS: ATTEND Obstetrics & Gynecology
DX: Z87.59 Personal history of other complications of pregnancy, childbirth and the puerperium (principal)
CPT/HCPCS: 59025; 76819; 96360; 96375; 99214

== ENCOUNTER 2023-10-17 12:54 | Outpatient (CLI) | payer OTHER ==
[2023-10-17] MEDS: ONDANSETRON 4 MG/2 ML VIAL IVP STA (14:09)
[2023-10-17] MEDS: LACTATED RINGERS 1,000 ML BAG IV STA (14:09)
[2023-10-17 14:18] LABS: Basophils % (A) 0 %; Eosinophils % (A) 1 %; HCT 33.1 % (34.0-46.0); HGB 11.4 gm/dL (11.4-16.0); Lymphocytes % (A) 16 %; MCH 28.7 pg (25.0-35.0); MCHC 34.4 g/dL (31.0-37.0); MCV 83.4 fL (80.0-100.0); Mean Platelet Volume 9.3; Monocytes # (A) 0.3 k/uL (0-1.0); Monocytes % (A) 5 %; Neutrophils % (A) 77 %; Platelet Count 205 k/uL (150-450); RBC 3.96 m/uL (3.80-5.40); RDW 13.5 % (11.5-15.5); WBC 6.5 k/uL (3.8-10.6)
[2023-10-17 14:33] LABS: Appearance,Urine Turbid (Clear); Bacteria,Urine Rare /hpf; Bilirubin,Urine 1+ (Negative); Blood,Urine Negative (Negative); Color,Urine Dark Brown; Glucose,Urine (UA) Negative (Negative); Leukocyte Esterase,Urine Large (Negative); Mucus,Urine Many /hpf; Nitrite,Urine Negative (Negative); Protein,Urine 1+ (Negative); RBC,Urine 5 /hpf (0-5); Specific Gravity,Urine 1.023 (1.001-1.035); Squamous Epithelial Cell,Urine 20 /hpf (0-4); WBC,Urine 68 /hpf (0-5)
[2023-10-17 14:34] LABS: Ketones,Urine 2+ (Negative)
[2023-10-17 14:44] LABS: ALT 20 U/L (4-34); AST 33 U/L (14-36); African American GFR (CKD) >90 (>60 ml/min/1.73 sqM); Blood Urea Nitrogen 9 mg/dL (7-17); LDH 214 U/L (120-246); Non-African American GFR(CKD) >90 (>60 ml/min/1.73 sqM); Uric Acid 7.7 mg/dL (3.7-7.4)
[2023-10-17 15:06] LABS: Creatinine,Urine Random 440.8 mg/dL; Protein/Creatinine Ratio,Urine 0.068
[2023-10-17] MEDS: FAMOTIDINE 20 MG/2 ML VIAL IV STA (15:07)
[2023-10-17 16:26] VITALS: BP 137/98; PULSE 92; RESP 16; TEMP 97.1
--- NOTE | 2024-01-07 10:36 | P.MSEPDOC ---
Presenting Problems - Arrival Data Date of Arrival on Unit: 10/17/23 Time of Arrival on Unit: 12:54 Mode of Transport: Wheelchair - Complaint OB-Reason for Admission/Chief Complaint: Hyperemesis, Dizziness Comment: patient presents to triage with complaints of nausea, vomiting, and dizziness. Medical History - Information : 4 Para: 1 Term: 1 : 0 Abortions: Spontaneous or Elective: 3 Number of Living Children: 1 - Gestational Age Gestational Age by SAMMI (wks/days): 37 Weeks and 2 Days Review of Systems - Review of Systems Constitutional: No problems Breast: No problems ENT: No problems Cardiovascular: No problems Respiratory: No problems Gastrointestinal: No problems Genitourinary: No problems Musculoskeletal: No problems Neurological: No problems Skin: No problems Vital Signs - Temperature Temperature: 97.1 F Temperature Source: Temporal Artery Scan - Pulse Pulse Oximetery Pulse Rate: 92 Pulse Assessment Method: Pulse Oximetry - Respirations Respiratory Rate: 16 Oxygen Delivery Method: Room Air O2 Sat by Pulse Oximetry: 97 - Blood Pressure Right Arm Blood Pressure: 137/98 Blood Pressure Mean: 111 Blood Pressure Source: Automatic Cuff Physician Notification - Physician Notified Physician Notified Date: 10/17/23 Physician Notified Time: 13:39 Physician: Lorraine Carrizales New Order Received: Yes (LR fluid bolus, IV zofran, IV pepcid, Preeclampsia labs, discharge home) Maternal Triage Index - Stat/Priority 1 Stat Priority 1: No - Urgent/Priority 2 Urgent Priority 2: No - Prompt/Priority 3 Prompt Priority 3: No - Non-Urgent/Priority 4 Non-Urgent Priority 4: Yes Criteria Met for Priority 4: patient presents to triage with complaints of nausea, vomiting, and dizziness. Disposition - Disposition OB Disposition: Discharge to home I agree with the RN Medical Screening Exam: Yes Case reviewed; plan agreed upon as documented in EMR&OBIX.: Yes Diagnosis: RELATED CONDITIONS, UNSPECIFIED, THIRD TRIMESTER
== END 2023-10-17 16:27 ==
LOC: FBPOP 12:54
PROVIDERS: ATTEND Obstetrics & Gynecology Obstetrics
CPT/HCPCS: 36415; 59025; 81001; 82565; 82570; 83615; 84156; 84450; 84460; 84520; 84550; 85025; 96361; 96374; 96375; 99214; 99215

== ENCOUNTER 2023-10-19 10:10 | Inpatient (IN) | payer OTHER ==
[2023-10-19] MEDS: FAMOTIDINE 20 MG/2 ML VIAL IV STA (10:47)
[2023-10-19] MEDS: DEXTROSE 5%-LACTATED RINGERS 1,000 ML IV ONE (10:47)
[2023-10-19] MEDS: PROCHLORPERAZINE INJ 10 MG/2 ML VIAL IVP STA (10:47)
[2023-10-19 12:23] LABS: Appearance,Urine Clear (Clear); Bilirubin,Urine Negative (Negative); Blood,Urine Negative (Negative); Color,Urine Colorless; Glucose,Urine (UA) 4+ (Negative); Leukocyte Esterase,Urine Negative (Negative); Nitrite,Urine Negative (Negative); PH, Urine 6.5 (5.0-8.0); Protein,Urine Negative (Negative); Specific Gravity,Urine 1.006 (1.001-1.035); Urobilinogen,Urine <2.0 mg/dL (<2.0)
[2023-10-19 12:25] LABS: Ketones,Urine 2+ (Negative)
[2023-10-19] MEDS ORDERED: miSOPROStoL 200 MCG TAB PO PRN (12:32)
[2023-10-19] MEDS ORDERED: LIDOCAINE 0.5% (PF) 5 MG/ML (50 ML SDV) SQ PRN (12:32)
[2023-10-19] MEDS ORDERED: METHYLERGONOVINE 0.2 MG/ML 1 ML AMP IM PRN (12:32)
[2023-10-19] MEDS ORDERED: CARBOPROST TROMETHAMINE 250 MCG/ML 1 ML AMP IM PRN (12:32)
[2023-10-19] MEDS ORDERED: TERBUTALINE 1 MG/ML VIAL SQ PRN (12:32)
[2023-10-19] MEDS ORDERED: miSOPROStoL 200 MCG TAB RECTAL PRN (12:32)
[2023-10-19] MEDS ORDERED: OXYTOCIN 10 UNIT/ML 1 ML VIAL IM PRN (12:32)
[2023-10-19] MEDS ORDERED: TRANEXAMIC 1,000 MG/100ML-NACL 1,000 MG in EMPTY BAG 1 BAG IV PRN (12:32)
[2023-10-19] MEDS ORDERED: OXYTOCIN 30 UNITS/500 ML NS 30 UNIT in SALINE 1 500ML.BAG IV SCH (12:45)
[2023-10-19 12:53] LABS: Basophils % (A) 0 %; Eosinophils % (A) 0 %; HCT 32.1 % (34.0-46.0); HGB 10.8 gm/dL (11.4-16.0); Lymphocytes # (A) 0.9 k/uL (1.0-4.8); Lymphocytes % (A) 11 %; MCH 28.5 pg (25.0-35.0); MCHC 33.8 g/dL (31.0-37.0); MCV 84.5 fL (80.0-100.0); Mean Platelet Volume 9.6; Monocytes # (A) 0.5 k/uL (0-1.0); Monocytes % (A) 6 %; Neutrophils # (A) 6.9 k/uL (1.3-7.7); Neutrophils % (A) 82 %; Platelet Count 182 k/uL (150-450); RDW 13.8 % (11.5-15.5); WBC 8.5 k/uL (3.8-10.6)
--- NOTE | 2023-10-19 12:54 | P.HPOB ---
History of Present Illness H&P Date: 10/19/23 Chief Complaint: medical induction of labor Ms. Hurst is a 28 year old at 37 weeks and 4 days with EDC of 11/05/2023 by LMP c/w 10 wk US who presents for medical induction of labor for gestational hypertension and IUGR 7%ile, abdominal circumference in 3%ile. She h as been undergoing regular surveillance in the office, which has been reassuring. PIH labwork has been unremarkable on several recent visits to triage for nauea/vomiting. Her pregnany has also been complicated by hyperemesis, likely exacerbated by marijuana use during preegnancy. She was previously counseled and cessation was encouraged. Finally the fetus is also noted to have a circumvallate placenta. Obstetric history: 1 FTVD, no complications work-up: Blood type O positive, antibody screen negative, rubella immune, VDRL negative, HBsAg negative, HIV negative, HCV Ab negative, gonorrhea negative, chlamydia negative, 1 hour GTT within normal limits, GBS unknown as the patient left for IV hydration at her 36 week appt prior to her OB appt. Past Medical History Past Medical History: No Reported History Additional Past Medical History / Comment(s): Blood type: O+ History of Any Multi-Drug Resistant Organisms: None Reported Past Surgical History: No Surgical Hx Reported Additional Past Surgical History / Comment(s): D&C 2016 Past Anesthesia/Blood Transfusion Reactions: No Reported Reaction Smoking Status: Never smoker - Past Family History Mother Family Medical History: No Reported History Medications and Allergies Home Medications Medication Instructions Recorded Confirmed Type Metoclopramide [Reglan] 10 mg PO DIRECTED 08/22/23 10/19/23 History RX: Aspirin 81 mg PO DAILY 09/11/23 10/19/23 History Allergies Allergy/AdvReac Type Severity Reaction Status Date / Time No Known Allergies Allergy Verified 10/19/23 10:20 Exam Intake and Output 10/18/23 10/19/23 10/19/23 22:59 06:59 14:59 Other: Weight 95.254 kg Focused physical exam is performed. This is a healthy-appearing in no apparent distress. Breathing is non-labored. Abdomen is gravid and non-tender. Cervical exam is 4 cm, 50 effacement, -2 station. AROM is undertaken with clear fluid noted. Extremities non-tender and non-edematous. heart tones are reactive and reassuring on NST and tocometer is graphing irregular contractions Results Abnormal Lab Results - Last 24 Hours (Table) 10/19/23 Range/Units 12:10 Urine Glucose (UA) 4+ H (Negative) Urine Ketones 2+ H (Negative) Assessment and Plan Assessment: 28 year old at 37 weeks and 4 days being medically induced for gestational HTN and IUGR Plan: Admit, pitocin per protocol, epidural prn, continuous EFM and tocometer, anticipate vaginal delivery
[2023-10-19] MEDS: LACTATED RINGERS 1,000 ML IV SCH (13:24)
[2023-10-19] MEDS: OXYTOCIN 30 UNITS/500 ML NS 30 UNIT in SALINE 1 500ML.BAG IV SCH (13:26)
[2023-10-19] MEDS: NIFEdipine XL 30 MG TAB.ER.24 PO SCH (17:49)
[2023-10-19] MEDS: PROCHLORPERAZINE INJ 10 MG/2 ML VIAL IVP PRN (18:15)
[2023-10-19] MEDS ORDERED: HYDROCORTISONE 2.5% RECTAL CREAM 30 GM TUBE RECTAL PRN (23:06)
[2023-10-19] MEDS ORDERED: diphenhydrAMINE 25 MG CAP PO PRN (23:06)
[2023-10-19] MEDS ORDERED: diphenhydrAMINE 50 MG/ML 1 ML VIAL IVP PRN ×2 (23:06)
[2023-10-19] MEDS ORDERED: LANOLIN CREAM 1 GM TUBE TOPICAL PRN (23:06)
[2023-10-19] MEDS ORDERED: ZOLPIDEM 5 MG TAB PO PRN (23:06)
[2023-10-19] MEDS ORDERED: diphenhydrAMINE 50 MG CAP PO PRN (23:06)
[2023-10-19] MEDS ORDERED: BENZOCAINE/MENTHOL SPRAY 1 GM/SPRAY AEROSOL TOPICAL PRN (23:06)
--- NOTE | 2023-10-19 23:06 | P.PROBDLV ---
Vaginal Delivery Note - . Vaginal Delivery Note: DATE OF SERVICE: 10/19/2023 PROCEDURE: Normal Vaginal Delivery ATTENDING: Dr. Trisha Servin MD ESTIMATED BLOOD LOSS: 200 mL FINDINGS: VFI, Apgars 8/9. Weight is 5 pounds and 8 ounces (2490 grams) PROCEDURE: Ms. Hurst is a 28 year old at 37 weeks and 4 days presenting to labor and delivery for medical induction of labor for newly diagnosed gestational hypertension. The has been otherwise complicated by intrauterine growth restriction in the 7th percentile. For further details, please review the admitting H&P. Pitocin was titrated per protocol. AROM was undertaken at 1315 revealing clear amniotic fluid. She used nitrous oxide for analgesia throughout her labor course. She declined epidural. The patient was completely dilated at 2242. She pushed once and delivered a viable female infant without difficulty at 2245. The was placed on the maternal abdomen and bulb suctioned. The was noted to be spontaneously crying. Cord was clamped and cut after a 60-second delay. The was handed off to the pediatric team. Placenta was delivered whole with gentle cord traction at 2250. Oxytocin was started to facilitate uterine tone. Uterine fundus was found to be firm and below the umbilicus upon fundal massage. Thorough examination of the cervix, vagina, periurethral area, and perineum revealed no lacerations. The patient is stable and allowed to begin the bonding process.
[2023-10-19 23:07] VITALS: RESP 16
[2023-10-19] MEDS: ACETAMINOPHEN TAB 325 MG TAB PO PRN (23:41)
[2023-10-20 05:40] LABS: Basophils % (A) 0 %; Eosinophils % (A) 0 %; HCT 30.2 % (34.0-46.0); HGB 10.1 gm/dL (11.4-16.0); Lymphocytes # (A) 0.8 k/uL (1.0-4.8); Lymphocytes % (A) 11 %; MCH 28.3 pg (25.0-35.0); MCHC 33.6 g/dL (31.0-37.0); MCV 84.2 fL (80.0-100.0); Mean Platelet Volume 9.9; Monocytes # (A) 0.5 k/uL (0-1.0); Monocytes % (A) 6 %; Neutrophils # (A) 6.4 k/uL (1.3-7.7); Neutrophils % (A) 82 %; Platelet Count 168 k/uL (150-450); RBC 3.58 m/uL (3.80-5.40); RDW 13.7 % (11.5-15.5); WBC 7.9 k/uL (3.8-10.6)
--- NOTE | 2023-10-20 06:00 | P.PNOBGVD ---
Subjective - Subjective Principal diagnosis: s/p normal vaginal delivery Interval history: The patient is doing well this morning and had no acute events overnight. She has no complaints this morning. She reports minimal lochia, passing flatus, voiding without difficulty, ambulating, and eating/drinking without nausea or vomiting. She is her without difficulty. She denies chest pain, shortness of breathing, fevers, or chills overnight. She denies pain or swelling in the legs. The patient has had intermittently severe range blood pressures overnight. Her morning dose of Procardia XL has been increased from 30 to 60mg. She denies headache, visual disturbances, and right upper quadrant pain. Patient reports: Reports appetite normal, Reports voiding normally, Reports pain well controlled, Reports ambulating normally [place]: doing well, nursing well Objective - Latest Vital Signs Latest vital signs: Vital Signs Temp Pulse Resp BP Pulse Ox 10/20/23 04:00 82 16 172/113 99 10/20/23 00:52 105 H 16 154/84 10/20/23 00:37 85 16 170/125 10/20/23 00:22 16 10/20/23 00:07 94 16 154/92 10/19/23 23:52 88 16 154/99 10/19/23 23:35 81 16 151/81 10/19/23 23:22 76 16 161/91 97 10/19/23 23:07 82 16 158/88 97 10/19/23 22:52 98.4 F 91 16 179/90 98 Intake and Output 10/19/23 10/19/23 10/20/23 14:59 22:59 06:59 Intake Total 18.8 167.4 Output Total 200 505 Balance -181.2 -337.6 Intake: Intake, IV Titration 18.8 167.4 Amount Oxytocin 30 Units/500 ml 18.8 167.4 Ns 30 unit In Saline 1 500ml.bag @ Per Protocol IV .Q0M [facility] Rx#:[id number] Output: Estimated Blood Loss 200 Output, Quantitative 505 Blood Loss Other: # Voids 1 1 Weight 95.254 kg - Exam Extremities: Present: normal Abdomen: Present: normal appearance, soft Uterus: Present: normal, firm - Labs Labs: Abnormal Lab Results - Last 24 Hours (Table) 10/19/23 10/19/23 10/20/23 Range/Units 10:47 12:10 05:10 RBC 3.58 L (3.80-5.40) m/uL Hgb 10.8 L 10.1 L (11.4-16.0) gm/dL Hct 32.1 L 30.2 L (34.0-46.0) % Lymphocytes # 0.9 L 0.8 L (1.0-4.8) k/uL Urine Glucose (UA) 4+ H (Negative) Urine Ketones 2+ H (Negative) Assessment and Plan Assessment: 28 year old now PPD#1 s/p normal vaginal delivery after medical induction at 37 weeks for gestational hypertension and IUGR Plan: 1. . Patient meeting all milestones appropriately. 2. Gestational HTN. Intermittently severe range BPs overnight. Daily dose of Procardia XL increased from 30 to 60mg daily. Continue to monitor. Patient asymptomatic. 3. Viable female at bedside, nursing well. Dispo: Anticipate discharge home on PPD#2 if blood pressures remain <150/90.
[2023-10-20] MEDS: SENNOSIDES-DOCUSATE SODIUM 1 EACH TAB PO SCH (10:16)
[2023-10-20] MEDS: NIFEdipine XL 30 MG TAB.ER.24 PO STA (13:33)
[2023-10-20] MEDS: CAPSAICIN 0.025% CREAM 60 GM TUBE TOPICAL SCH (13:34)
[2023-10-20] MEDS: SIMETHICONE 80 MG CHEWABLE PO PRN (18:49)
[2023-10-20] MEDS: IBUPROFEN 600 MG TAB PO PRN (20:20)
[2023-10-21] MEDS: NIFEdipine XL 90 MG TAB.ER.24 PO SCH (08:21)
--- NOTE | 2023-10-21 08:23 | P.PNOBGVD ---
Subjective - Subjective Principal diagnosis: s/p normal vaginal delivery Interval history: The patient is doing well this morning and had no acute events overnight. She complains of epigastric pain and some nausea this morning. She reports minimal lochia, passing flatus, voiding without difficulty, ambulating, and eating/drinking without nausea or vomiting. She is breast feeding her without difficulty. She denies chest pain, shortness of breathing, fevers, or chills overnight. She denies pain or swelling in the legs. She denies headache, visual disturbances, and RUQ pain. Patient reports: Reports appetite normal, Reports voiding normally, Reports pain well controlled, Reports ambulating normally [place]: doing well, nursing well Objective - Latest Vital Signs Latest vital signs: Vital Signs Temp Pulse Resp BP Pulse Ox 10/21/23 08:19 98.2 F 83 16 152/98 10/21/23 00:00 97 16 125/78 99 10/20/23 20:00 98.1 F 83 16 147/95 100 10/20/23 16:43 98.7 F 16 149/88 10/20/23 10:00 98.1 F 78 16 151/93 Intake and Output 10/20/23 10/21/23 10/21/23 22:59 06:59 14:59 Other: # Voids 2 - Exam Extremities: Present: normal Abdomen: Present: normal appearance, soft Uterus: Present: normal, firm Assessment and Plan Assessment: 28 year old now PPD#2 s/p normal vaginal delivery after medical induction at 37 weeks for gestational hypertension and IUGR Plan: 1. . Patient meeting all milestones appropriately. 2. Gestational HTN. BPs normotensive to mild-range overnight. Now on Procardial XL 90mg daily. Continue to monitor. Patient asymptomatic. 3. Viable female at bedside, nursing well. Dispo: Anticipate discharge home this afternoon is BPs <150/90.
[2023-10-21] MEDS: FAMOTIDINE 20 MG TAB PO SCH (08:29)
[2023-10-21 16:16] VITALS: BP 120/84; PULSE 91; TEMP 98.6
--- NOTE | 2023-10-21 16:45 | P.DS ---
Providers Date of admission: 10/19/23 12:32 Expected date of discharge: 10/21/23 Attending physician: Trisha Servin MD Primary care physician: Stated None Hospital Course: Ms. Hurst is a 28 year old now PPD#2 s/p normal vaginal delivery after medical induction of labor for gestational HTN and IUGR. Her labor and delivery was uncomplicated. During labor she was started on Procardia XL 30mg which was sequentially increased to 90 qAM during her course. This afternoon her BPs are all well controlled and normotensive. She is asymptomatic. She desires discharge home. She will go home with Procardia, stool softeners, Motrin, and Tylenol. She will follow up in the office in 1 week. She is to call the office for any s/s of pre-eclampsia, foul discharge, heavy bleeding, fevers or chills. All questions answered. Assessment: 28 year old PPD#2 s/p medical IOL for gHTN and IUGR Patient Condition at Discharge: Good Plan - Discharge Summary New Discharge Prescriptions: New Acetaminophen Tab [Tylenol] 650 mg PO Q6H PRN #30 tab PRN Reason: Mild Pain (Scale 1 To 3) polyethylene glycoL 3350 [Miralax] 17 gm PO DAILY PRN #527 gm PRN Reason: Constipation Ibuprofen [Motrin] 600 mg PO Q6HR PRN #30 tab PRN Reason: Mild Pain (Scale 1 To 3) NIFEdipine XL [Procardia Xl] 90 mg PO DAILY #30 tab No Action Metoclopramide [Reglan] 10 mg PO DIRECTED Aspirin 81 mg PO DAILY Discharge Medication List Metoclopramide [Reglan] 10 mg PO DIRECTED 08/22/23 [History] Aspirin 81 mg PO DAILY 09/11/23 [History] Acetaminophen Tab [Tylenol] 650 mg PO Q6H PRN #30 tab 10/21/23 [Rx] Ibuprofen [Motrin] 600 mg PO Q6HR PRN #30 tab 10/21/23 [Rx] NIFEdipine XL [Procardia Xl] 90 mg PO DAILY #30 tab 10/21/23 [Rx] polyethylene glycoL 3350 [Miralax] 17 gm PO DAILY PRN #527 gm 10/21/23 [Rx] Follow up Appointment(s)/Referral(s): Trisha Servin MD [STAFF PHYSICIAN] - 11/30/23 2:00 pm (And 1 week BP check) Discharge Disposition: HOME SELF-CARE
== END 2023-10-21 17:32 | disposition home or self-care (01) | DRG 560 ==
LOC: FBPOP 10:10 → 4FBP 12:32
PROVIDERS: ADMIT Obstetrics & Gynecology; ATTEND Obstetrics & Gynecology
PROC: 10E0XZZ Delivery of Products of Conception, External Approach (ICD-10-PCS; principal; 2023-10-19)
PROC: 10907ZC Drainage of Amniotic Fluid, Therapeutic from Products of Conception, Via Natural or Artificial Opening (ICD-10-PCS; 2023-10-19)
PROC: 3E033VJ Introduction of Other Hormone into Peripheral Vein, Percutaneous Approach (ICD-10-PCS; 2023-10-19)
DX: O13.4 Gestational [pregnancy-induced] hypertension without significant proteinuria, complicating childbirth (principal); O36.5930 Maternal care for other known or suspected poor fetal growth, third trimester, not applicable or unspecified; O43.113 Circumvallate placenta, third trimester; Z37.0 Single live birth; Z3A.37 37 weeks gestation of pregnancy; Z79.82 Long term (current) use of aspirin
CPT/HCPCS: 59025; 81003; 85025; 86850; 86900; 86901; 88307; 99213

== ENCOUNTER 2024-09-21 06:41 | Day surgery (SDC) | payer OTHER ==
[2024-09-21] MEDS: LACTATED RINGERS 1,000 ML IV SCH (07:30)
[2024-09-21] MEDS: IV FLUID CONTINUATION 1,000 ML IV ONE ×2 (07:30→12:25)
[2024-09-21] MEDS: MIDAZOLAM 2 MG/2 ML VIAL IV PRN (07:44)
[2024-09-21] MEDS: DEXAMETHASONE SOD PHOSPHATE 4 MG/ML 1 ML VIAL IV ONE (07:44)
[2024-09-21] MEDS: ONDANSETRON 4 MG/2 ML VIAL IVP ONE (07:45)
[2024-09-21] MEDS: INDOCYANINE GREEN 25 MG VIAL IV PRN (07:45)
[2024-09-21] MEDS: SCOPOLAMINE 1 MG/72 HR PATCH TRANSDERM ONE (07:47)
[2024-09-21 07:59] LABS: Basophils # (A) 0.04 10*3/uL (0.00-0.10); Basophils % (A) 0.6 %; Eosinophils # (A) 0.07 10*3/uL (0.04-0.35); Eosinophils % (A) 1.1 %; HCT 34.2 % (37.2-46.3); HGB 11.3 g/dL (12.0-15.0); Lymphocytes # (A) 2.74 10*3/uL (0.90-5.00); Lymphocytes % (A) 42.4 %; MCH 26.6 pg (27.0-32.0); MCHC 33.0 g/dL (32.0-37.0); MCV 80.5 fL (80.0-97.0); Monocytes # (A) 0.45 10*3/uL (0.20-1.00); Monocytes % (A) 7.0 %; Neutrophils # (A) 3.15 10*3/uL (1.80-7.70); Neutrophils % (A) 48.7 %; Platelet Count 240 10*3/uL (140-440); RBC 4.25 10*6/uL (4.10-5.20); RDW 14.5 % (11.5-14.5); WBC 6.46 10*3/uL (4.50-10.00)
[2024-09-21 08:11] LABS: INR 0.9 (<1.2); Partial Thromboplastin Time 23.5 sec (22.0-30.0); Prothrombin Time 10.2 sec (10.0-12.5)
[2024-09-21 08:12] LABS: ALT 19 U/L (4-34); AST 28 U/L (14-36); African American GFR (CKD) >90 (>60 ml/min/1.73 sqM); Albumin 4.7 g/dL (3.5-5.0); Alkaline Phosphatase 81 U/L (38-126); Anion Gap 13 mmol/L; Blood Urea Nitrogen 9 mg/dL (7-17); Calcium 9.3 mg/dL (8.4-10.2); Carbon Dioxide 26 mmol/L (22-30); Chloride 105 mmol/L (98-107); Glucose 94 mg/dL (74-99); Non-African American GFR(CKD) >90 (>60 ml/min/1.73 sqM); Potassium 3.4 mmol/L (3.5-5.1); Sodium 144 mmol/L (137-145); Total Protein 7.3 g/dL (6.3-8.2)
[2024-09-21] MEDS: HEPARIN SODIUM,PORCINE 5,000 UNIT/ML 1 ML VIAL SQ PRN (08:14)
[2024-09-21] MEDS ORDERED: LIDOCAINE 1% INJ 10MG/ML (20 ML MDV) ONE (08:55)
[2024-09-21] MEDS ORDERED: NEOSTIGMINE 1 MG/ML 10 ML VIAL ONE (08:55)
[2024-09-21] MEDS ORDERED: PROPOFOL 10 MG/ML 20 ML VIAL IV ONE (08:55)
[2024-09-21] MEDS ORDERED: fentaNYL (PF) 50 MCG/ML 2 ML AMP ONE (08:55)
[2024-09-21] MEDS ORDERED: GLYCOPYRROLATE 0.2 MG/ML 2 ML VIAL ONE (08:55)
[2024-09-21] MEDS ORDERED: ROCURONIUM 10 MG/ML (5 ML VIAL) IV ONE (08:55)
[2024-09-21] MEDS ORDERED: HYDROmorphone (PF) 1 MG/ML ONE (08:55)
[2024-09-21] MEDS: LIDOCAINE 1%-EPI 1:100,000 20 ML VIAL SQ ONE (09:13)
--- NOTE | 2024-09-21 10:10 | P.OP ---
Date of Procedure: 09/21/24 Preoperative Diagnosis: Chronic calculus cholecystitis Postoperative Diagnosis: Chronic calculus cholecystitis Procedure(s) Performed: Robotic cholecystectomy Anesthesia: LOVELY Surgeon: Terra Ortega Pathology: other (Gallbladder and contents) Condition: stable Disposition: same day Indications for Procedure: 79-year-old female with on and off right upper quadrant abdominal pain over the past few years. She has been found to have concern for Nelida lithiasis and gallbladder sludge. Plan is for robotic cholecystectomy. Risks, benefits and alternatives were provided to the patient. All questions answered prior to attending the operating suite. Operative Findings: Mildly distended gallbladder Description of Procedure: Patient was brought to the operating suite and placed in supine position on the operating table. Sedation was provided by anesthesia and the patient underwent endotracheal intubation. The patient was then prepped and draped in regular sterile fashion. An infraumbilical incision was made and dissection was carried to the fascia. The fascia was incised and an 8 mm trocar was placed. Pneumoperitoneum was achieved. The patient was then placed in appropriate position. 2 additional 8 mm trocars were placed in the right upper quadrant and 1 in the left upper quadrant. Robot was then docked. The gallbladder was then grasped and retracted superiorly and laterally. The gallbladder appeared distended. Dissection was carried along the infundibulum towards the cystic duct and the cystic duct was skeletonized. The cystic artery was similarly skeletonized and critical view was obtained. ICG was used to confirm anatomy. 2 clips were placed proximally on the cystic duct and 1 was placed distally and the cystic duct was ligated. Similarly, 2 clips were placed proximally on the cystic artery and 1 was placed distally and the cystic artery was ligated. Cautery was then used to dissect the gallbladder off of the gallbladder fossa. The gallbladder was then placed in an Endo Catch bag and removed from the abd omen from the infraumbilical incision site. Irrigation was placed in the right upper quadrant and suctioned. Hemostasis was noted to be maintained. No bile leakage was noted. The infraumbilical fascial incision was closed under direct visualization using an 0 Vicryl suture and Be-Sabine device. Pneumoperitoneum was released. All ports removed from the abdomen. All port sites were closed with 4-0 Vicryl subcuticular suture. Sterile dressing was applied. The patient was taken to postanesthesia care unit in stable condition. Sponge and instrument count correct x 2.
[2024-09-21 10:13] VITALS: TEMP 97.2
[2024-09-21] MEDS: HYDROmorphone 0.5 MG/0.5 ML SYRINGE IVP PRN (10:36)
[2024-09-21 11:14] VITALS: RESP 16
[2024-09-21] MEDS: HYDROcodone/APAP 5-325MG 1 EACH TAB PO PRN (11:18)
[2024-09-21] MEDS: ONDANSETRON 4 MG/2 ML VIAL IVP STA (12:25)
[2024-09-21] MEDS: droPERidol 2.5 MG/ML VIAL IVP ONE (13:05)
[2024-09-21 15:42] VITALS: BP 143/93; PULSE 72
== END 2024-09-21 15:55 | disposition home or self-care (01) ==
LOC: OR 06:41
PROVIDERS: ATTEND Surgery
DX: K80.10 Calculus of gallbladder with chronic cholecystitis without obstruction (principal); K21.9 Gastro-esophageal reflux disease without esophagitis; F17.290 Nicotine dependence, other tobacco product, uncomplicated; Z79.899 Other long term (current) drug therapy
CPT/HCPCS: 47562; S2900; 80053; 81025; 85025; 85610; 85730; 88304